=== PATIENT | female | born 1960 | race American Indian/Alaskan Native ===

== ENCOUNTER 2016-12-14 08:08 | Inpatient (IN) | payer MEDICAID, OTHER ==
[2016-12-14 08:17] VITALS: BMI 24.6
[2016-12-14] MEDS ORDERED: Sodium Chloride 0.9% 1,000 ML IV ONE (08:33)
--- NOTE | 2016-12-14 08:44 | C.PDOC ---
History Of Present Illness 56 y/o female pmhx HLD presents to the ED with complains of abdominal pain which onset after eating chicken last night. Pt reports associated nausea and 1 episode nonbloody nonbilious vomit. Denies fever, diarrhea, chest pain or any other complaints. Time Seen by Provider: 12/14/16 08:24 Chief Complaint (Nursing): Abdominal Pain History Per: Patient History/Exam Limitations: no limitations Onset/Duration Of Symptoms: Hrs Current Symptoms Are (Timing): Still Present Context: Food Severity: Moderate Location Of Pain/Discomfort: Diffuse Radiation Of Pain To:: None Quality Of Discomfort: "Pain" Associated Symptoms: Nausea, Vomiting. denies: Fever, Diarrhea, Chest Pain Exacerbating Factors: Food Alleviating Factors: None Recent travel outside of the [place]: No Past Medical History Reviewed: Historical Data, Nursing Documentation, Vital Signs Vital Signs: Last Vital Signs Temp 98.3 F 12/14/16 08:17 Pulse 60 12/14/16 10:36 Resp 18 12/14/16 08:17 BP 165/88 H 12/14/16 10:36 Pulse Ox 100 12/14/16 10:50 - Medical History PMH: Hypercholesterolemia Family History: States: Unknown Family Hx - Social History Hx Alcohol Use: No Hx Substance Use: No - Immunization History Hx Tetanus Toxoid Vaccination: No Hx Influenza Vaccination: No Hx Pneumococcal Vaccination: No Review Of Systems Except As Marked, All Systems Reviewed And Found Negative. Constitutional: Negative for: Fever Cardiovascular: Negative for: Chest Pain Gastrointestinal: Positive for: Nausea, Vomiting, Abdominal Pain. Negative for : Diarrhea Physical Exam - Physical Exam Appears: Non-toxic, No Acute Distress Skin: Warm, Dry, No Rash Head: Atraumatic, Normacephalic Oral Mucosa: Moist Neck: Normal, Normal ROM, Supple Chest: Symmetrical Cardiovascular: Rhythm Regular, No Murmur Respiratory: Normal Breath Sounds, No Rales, No Rhonchi, No Wheezing Gastrointestinal/Abdominal: Soft, Tenderness (RUQ), No Guarding, No Rebound Extremity: Bilateral: Atraumatic Neurological/Psych: Oriented x3, Normal Speech ED Course And Treatment - Laboratory Results Result Diagrams: 12/14/16 09:13 12/14/16 09:13 ECG: Interpreted By Me, Viewed By Me ECG Rhythm: Sinus Bradycardia Interpretation Of ECG: No ST/T wave changes Rate From EC (BPM) O2 Sat by Pulse Oximetry: 100 (room air) Pulse Ox Interpretation: Normal - CT Scan/US US abdomen Other Rad Studies (CT/US): Read By Radiologist, Radiology Report Reviewed CT/US Interpretation: Accession No. : [id number]. Patient Name / ID : RAMAKRISHNA ALCANTARA / [id number]. Exam Date : 12/14/2016 09:19:12 ( Approved ). Study Comment : Sex / Age : F / 56Y. Creator : Khalif Pedro MD. Dictator : Khalif Pedro MD. Insert Operator : Acute Specialist : Khalif Pedro MD. Approver2 : Report Date : 12/14/2016 10:26:18. My Comment : . Right upper quadrant abdominal ultrasound. History: Abdominal pain. Comparison: None available. Technique: Real-time sonography was performed through the right upper quadrant of the abdomen. Findings: Liver: 16.5 centimeters in length. Normal echogenicity. Gallbladder: Cholelithiasis. Calculi measure up to 2 centimeters. Gallbladder wall thickening up to 4 millimeters. Some fluid noted at the level of the gallbladder wall. Negative sonographic Flores's sign. Prominent common bile duct measuring 7 millimeters. Visualized portions of the pancreas are preserved. Pancreatic tail not well visualized. Spleen measures 7.6 centimeters in length, within normal limits. Visualized aorta and IVC are preserved. Right kidney: 9.9 x 3.7 x 4.1 centimeters. Increased echogenicity suggestive for medical renal disease. Lower pole hypoechoic cyst measuring 2.1 x 2.4 x 2.0 centimeters. No calculi or hydronephrosis. Left kidney: 9.8 x 4.7 x 5.5 centimeters. Increased echogenicity of the renal cortex suggestive for medical renal disease. No calculi or hydronephrosis. Impression: 1. Cholelithiasis with gallbladder wall thickening measuring up to 4 millimeters and fluid adjacent at the gallbladder wall. Prominent calculus noted lodged at the gallbladder neck. These findings may represent an acute cholecystitis. Correlation with nuclear medicine study and or clinical correlation would be helpful. 2. Prominent common bile duct measuring up to 7.3 millimeters. 3. 2.1 centimeter right renal cyst. 4. Increased echogenicity of the bilateral renal cortices suggestive for medical renal disease. Medical Decision Making Medical Decision Making: Plan: * labs * US abdomen * UA * IV fluids * morphine, zofran Discussed case with Dr Oneill, accepted patient for admission to her service. Discussed case with surgical assistant certified as well. Disposition - Disposition Disposition: HOSPITALIZED Disposition Time: 10:40 Condition: STABLE - Clinical Impression Clinical Impression: Cholecystitis - Scribe Statement The provider has reviewed the documentation as recorded by the Baironibe Calderon [place] Provider Attestation: All medical record entries made by the Baironibe were at my direction and personally dictated by me. I have reviewed the chart and agree that the record accurately reflects my personal performance of the history, physical exam, medical decision making, and the department course for this patient. I have also personally directed, reviewed, and agree with the discharge instructions and disposition. Decision To Admit - Pt Status Changed To: Hospital Disposition Of: Inpatient - Admit Certification Admit to Inpatient:: After my assessment, the patient will require hospitalization for at least two midnights. This is because of the severity of symptoms shown, intensity of services needed, and/or the medical risk in this patient being treated as an outpatient. - InPatient: Physician Admission Certification:: pt with acute kem, will need surgical eval , possible or - . Bed Request Type: Regular Admitting Physician: Amberly Oneill Patient Diagnosis: Cholecystitis
[2016-12-14] MEDS ORDERED: Sodium Chloride 0.9% 1,000 ML ONE ×2 (08:52→13:56)
[2016-12-14] MEDS ORDERED: Morphine 4 MG/ML VIAL ONE (08:52)
[2016-12-14 09:22] LABS: BASO % 0.5 % (0.0-2.0); EOS % 0.1 % (0.0-4.0); LYMPH # 0.9 K/uL (1.0-4.3); LYMPH % 16.9 % (20.0-40.0); MEAN CELL VOLUME 86.6 fL (81.0-99.0); MEAN CORPUSCULAR HEMOGLOBIN 28.5 pg (27.0-31.0); MEAN CORPUSCULAR HGB CONC 32.9 g/dL (33.0-37.0); MEAN PLATELET VOLUME 11.5 fL (7.2-11.7); MONO # 0.2 K/uL (0.0-0.8); MONO % 4.2 % (0.0-10.0); RED CELL DISTRIBUTION WIDTH 14.3 % (11.5-14.5); WHITE BLOOD COUNT 5.6 K/uL (4.8-10.8)
[2016-12-14 09:31] LABS: CHLORIDE 98 mmol/L (98-107); POTASSIUM 3.7 mmol/L (3.6-5.2); SODIUM 136 mmol/L (132-148)
[2016-12-14 09:33] LABS: BILIRUBIN,TOTAL 1.1 mg/dL (0.2-1.3); GFR AFRICAN-AMERICAN > 60
[2016-12-14 09:34] LABS: ALB/GLOB RATIO 1.2 (1.0-2.1); ALKALINE PHOSPHATASE 106 U/L (38-126); ALT/SGPT 21 U/L (9-52); AST/SGOT 25 U/L (14-36); BLOOD UREA NITROGEN 15 mg/dL (7-17); CALCIUM 9.2 mg/dl (8.6-10.4); CARBON DIOXIDE 25 mmol/L (22-30); GLUCOSE,RANDOM 115 mg/dL (65-105); TOTAL PROTEIN 8.2 g/dL (6.3-8.3)
[2016-12-14 09:44] LABS: INR 0.9
--- NOTE | 2016-12-14 10:28 | US ---
Right upper quadrant abdominal ultrasound History: Abdominal pain. Comparison: None available. Technique: Real-time sonography was performed through the right upper quadrant of the abdomen. Findings: Liver: 16.5 centimeters in length. Normal echogenicity. Gallbladder: Cholelithiasis. Calculi measure up to 2 centimeters. Gallbladder wall thickening up to 4 millimeters. Some fluid noted at the level of the gallbladder wall. Negative sonographic Flores's sign. Prominent common bile duct measuring 7 millimeters. Visualized portions of the pancreas are preserved. Pancreatic tail not well visualized. Spleen measures 7.6 centimeters in length, within normal limits. Visualized aorta and IVC are preserved. Right kidney: 9.9 x 3.7 x 4.1 centimeters. Increased echogenicity suggestive for medical renal disease. Lower pole hypoechoic cyst measuring 2.1 x 2.4 x 2.0 centimeters. No calculi or hydronephrosis. Left kidney: 9.8 x 4.7 x 5.5 centimeters. Increased echogenicity of the renal cortex suggestive for medical renal disease. No calculi or hydronephrosis. Impression: 1. Cholelithiasis with gallbladder wall thickening measuring up to 4 millimeters and fluid adjacent at the gallbladder wall. Prominent calculus noted lodged at the gallbladder neck. These findings may represent an acute cholecystitis. Correlation with nuclear medicine study and or clinical correlation would be helpful. 2. Prominent common bile duct measuring up to 7.3 millimeters. 3. 2.1 centimeter right renal cyst. 4. Increased echogenicity of the bilateral renal cortices suggestive for medical renal disease.
[2016-12-14] MEDS ORDERED: Piperacillin/Tazobact 3.375 GM in Sodium Chloride 100 ML IVPB STA (10:29)
[2016-12-14 10:59] LABS: RBC URINE 1 /hpf (0-3); URINE BILIRUBIN NEGATIVE (NEGATIVE); URINE BLOOD NEGATIVE (NEGATIVE); URINE COLOR Straw (YELLOW); URINE GLUCOSE (UA) NORMAL (Normal); URINE KETONE NEGATIVE (NEGATIVE); URINE LEUKOCYTE ESTERASE NEG Leu/uL (Negative); URINE PROTEIN NEGATIVE (NEGATIVE); URINE UROBILINOGEN NORMAL mg/dL (0.2-1.0); WBC URINE < 1 /hpf (0-5)
--- NOTE | 2016-12-14 11:26 | CP.PCM.CON ---
<Olu CHANGMeri - Last Filed: 12/14/16 11:51> History of Present Illness - History of Present Illness History of Present Illness: General Surgery Consult for Dr. Ralph: Patient is a 56 year old female with past medical history of elevated cholesterol who presents to the ED with complaint of right upper quadrant abdominal pain that began after eating dinner last night. Patient states she ate chicken and cabbage and began to feel a "knot" in her side that was persistent. Patient states she was unable to sleep due to the discomfort. She reports nausea and one episode of emesis early this morning. Patient states she has never had pain like this before. Patient denies trying to take any medication to alleviate the pain prior to arrival in the ED. Patient describes the abdominal discomfort as a dull aching pain. Patient reports last BM early this morning with reporting analyst than normal color- light sánchez. Patient reports this occurring once in a while in recent past. Right upper quadrant ultrasound shows gallbaldder wall thickening of 4mm, prominent CBD, prominent calculus in gallbladderneck. Surgery consulted for cholecystitis. PMD: none PMH: elevated cholesterol, not on medication PSH: section x2, unilateral salpingo-oophrectomy for ectopic Fam Hx: HTN, DM, father colon cancer Social hx: denies alcohol, drugs, tobacco Allergies: denies Review of Systems - Constitutional Constitutional: absent: Chills, Fever - EENT Eyes: absent: Change in Vision - Cardiovascular Cardiovascular: absent: Chest Pain, Dyspnea - Respiratory Respiratory: absent: Cough - Gastrointestinal Gastrointestinal: Abdominal Pain, Nausea, Vomiting. absent: Diarrhea, Hematemesis, Hematochezia Additional comments: light sánchez colored stool - Genitourinary Genitourinary: absent: Dysuria - Musculoskeletal Musculoskeletal: absent: Back Pain - Neurological Neurological: absent: Dizziness Past Patient History - Past Social History Smoking Status: Never Smoked - CARDIAC Hx Hypercholesterolemia: Yes - PSYCHIATRIC Hx Substance Use: No - SURGICAL HISTORY Hx Surgeries: Yes Hx Section: Yes (X2) - ANESTHESIA Hx Anesthesia: Yes Hx Anesthesia Reactions: No Meds Allergies/Adverse Reactions: Allergies Allergy/AdvReac Type Severity Reaction Status Date / Time No Known Allergies Allergy Verified 12/14/16 08:26 Physical Exam - Constitutional Appears: Non-toxic, No Acute Distress - Head Exam Head Exam: ATRAUMATIC, NORMOCEPHALIC - Eye Exam Eye Exam: EOMI - ENT Exam ENT Exam: Mucous Membranes Moist - Respiratory Exam Respiratory Exam: Clear to Auscultation Bilateral, NORMAL BREATHING PATTERN - Cardiovascular Exam Cardiovascular Exam: +S1, +S2 - GI/Abdominal Exam GI & Abdominal Exam: Normal Bowel Sounds, Soft, Tenderness (right upper quadrant , negative Flores's sign). absent: Distended, Firm, Guarding - Extremities Exam Extremities exam: Positive for: normal inspection. Negative for: pedal edema - Neurological Exam Neurological exam: Alert, Oriented x3 - Psychiatric Exam Psychiatric exam: Normal Affect, Normal Mood - Skin Skin Exam: Dry, Warm Results - Vital Signs Recent Vital Signs: Last Vital Signs Temp 98.3 F 12/14/16 08: Pulse 60 12/14/16 10:36 Resp 18 12/14/16 08:17 BP 165/88 H 12/14/16 10:36 Pulse Ox 100 12/14/16 10:52 - Labs Result Diagrams: 12/14/16 09:13 12/14/16 09:13 Labs: Laboratory Results - last 24 hr 12/14/16 12/14/16 12/14/16 09:13 09:13 09:13 WBC 5.6 RBC 4.16 Hgb 11.9 Hct 36.0 MCV 86.6 MCH 28.5 MCHC 32.9 L RDW 14.3 Plt Count 163 MPV 11.5 Neut % (Auto) 78.3 H Lymph % (Auto) 16.9 L [place] % (Auto) 4.2 Eos % (Auto) 0.1 Baso % (Auto) 0.5 Neut # 4.4 Lymph # 0.9 L [place] # 0.2 Eos # 0.0 Baso # 0.0 PT 10.4 INR 0.9 APTT 33 Sodium 136 Potassium 3.7 Chloride 98 Carbon Dioxide 25 Anion Gap 17 BUN 15 Creatinine 0.7 Est GFR ( Amer) > 60 Est GFR (Non-Af Amer) > 60 Random Glucose 115 H Calcium 9.2 Total Bilirubin 1.1 AST 25 ALT 21 Alkaline Phosphatase 106 Total Protein 8.2 Albumin 4.4 Globulin 3.8 Albumin/Globulin Ratio 1.2 Lipase 37 Urine Color Urine Clarity Urine pH Ur Specific [place] Urine Protein Urine Glucose (UA) Urine Ketones Urine Blood Urine Nitrate Urine Bilirubin Urine Urobilinogen Ur Leukocyte Esterase Urine WBC (Auto) Urine RBC (Auto) Ur Squamous Epith Cells Urine HCG, Qual 12/14/16 10:44 WBC RBC Hgb Hct MCV MCH MCHC RDW Plt Count MPV Neut % (Auto) Lymph % (Auto) [place] % (Auto) Eos % (Auto) Baso % (Auto) Neut # Lymph # [place] # Eos # Baso # PT INR APTT Sodium Potassium Chloride Carbon Dioxide Anion Gap BUN Creatinine Est GFR ( Amer) Est GFR (Non-Af Amer) Random Glucose Calcium Total Bilirubin AST ALT Alkaline Phosphatase Total Protein Albumin Globulin Albumin/Globulin Ratio Lipase Urine Color Straw Urine Clarity Clear Urine pH 8.0 Ur Specific [place] 1.012 Urine Protein Negative Urine Glucose (UA) Normal Urine Ketones Negative Urine Blood Negative Urine Nitrate Negative Urine Bilirubin Negative Urine Urobilinogen Normal Ur Leukocyte Esterase Neg Urine WBC (Auto) < 1 Urine RBC (Auto) 1 Ur Squamous Epith Cells 1 Urine HCG, Qual Negative Assessment & Plan - Assessment and Plan (Free Text) Assessment: 56 year old female with PMHx elevated cholesterol with RUQ pain and ultrasound findings suggestive of acute cholecystitis - US: gallbladder calculi up to 2cm. gallbaldder wall 4mm. s ome fluid at gallbladder wall. Negative sonographic flores's sign. Prominent CBD up to 7mm. Prominent calculus at gallbladder neck. May represent acute cholecystitis. - continue zofran, morphine for pain - patient will need to be medically cleared prior to surgery - plan for OR Wednesday - D/W Dr. Ralph <Bobby Ralph - Last Filed: 12/16/16 22:03> Meds - Medications Medications: Current Medications Clonidine HCl (Catapres Tts1 0.1 Mg/24 Hr) 1 patch TD Q7D@1000 [facility] Hydromorphone HCl (Dilaudid) 0.5 mg IVP Q4H PRN PRN Reason: Pain, moderate (4-7) Metronidazole (Flagyl) 500 mg in 100 mls @ 100 mls/hr IVPB Q8 [facility] Last Admin: 12/16/16 14:45 Dose: Not Given Ceftriaxone Sodium 1 gm/ (Sodium Chloride) 100 mls @ 100 mls/hr IVPB DAILY [facility] Last Admin: 12/16/16 09:49 Dose: 100 mls/hr Lactated Ringer's (Lactated Ringer's) 1,000 mls @ 100 mls/hr IV .Q10H [facility] Nifedipine (Procardia Xl) 30 mg PO DAILY [facility] Last Admin: 12/16/16 09:48 Dose: 30 mg Ondansetron HCl (Zofran Inj) 4 mg IVP Q6H PRN PRN Reason: Nausea/Vomiting Last Admin: 12/14/16 12:47 Dose: 4 mg Pantoprazole Sodium (Protonix Inj) 40 mg IVP DAILY [facility] Last Admin: 12/16/16 09:48 Dose: 40 mg Results - Vital Signs Recent Vital Signs: Last Vital Signs Temp 98.9 F 12/16/16 20:47 Pulse 88 12/16/16 20:49 Resp 20 12/16/16 20:47 BP 137/76 12/16/16 20:47 Pulse Ox 99 12/16/16 20:47 - Labs Result Diagrams: 12/15/16 07:10 12/16/16 10:15 Labs: Laboratory Results - last 24 hr 12/15/16 12/16/16 12/16/16 14:17 09:25 10:15 Sodium 135 Potassium 3.1 L Chloride 103 Carbon Dioxide 22 Anion Gap 14 BUN 18 H Creatinine 1.0 Est GFR ( Amer) > 60 Est GFR (Non-Af Amer) 58 Random Glucose 75 Calcium 9.1 Total Bilirubin 2.0 H AST 20 ALT 21 Alkaline Phosphatase 87 Total Protein 7.0 Albumin 3.7 Globulin 3.3 Albumin/Globulin Ratio 1.1 Ur Random Creatinine 55.8 U Random Total Protein 12.0 Urine HCG, Qual 12/16/16 12:01 Sodium Potassium Chloride Carbon Dioxide Anion Gap BUN Creatinine Est GFR ( Amer) Est GFR (Non-Af Amer) Random Glucose Calcium Total Bilirubin AST ALT Alkaline Phosphatase Total Protein Albumin Globulin Albumin/Globulin Ratio Ur Random Creatinine U Random Total Protein Urine HCG, Qual Negative Attending/Attestation - Attestation I have personally seen and examined this patient.: Yes I have fully participated in the care of the patient.: Yes I have reviewed all pertinent clinical information: Yes Notes (Text): 12/16/16 22:01 Pt was seen and examined at bedside on 12/14/16 Agree with above note and assessment. Pt with acute Cholecystitis with Abnormal LFTs and Dilated CBD Get MRCP Repeat LFTs Plan d.w pt in detail Medical clearance for possible Operation
[2016-12-14] MEDS ORDERED: Piperacillin/Tazobact 3.375 gm 100 ML IVPB ONE (12:41)
[2016-12-14] MEDS ORDERED: HYDROmorphone 1 mg/ml ISec IVP PRN (13:38)
--- NOTE | 2016-12-14 13:45 | RAD ---
HISTORY: preop COMPARISON: No prior. FINDINGS: LUNGS: Mild venous congestion. PLEURA: No significant pleural effusion identified, no pneumothorax apparent. CARDIOVASCULAR: Normal. OSSEOUS STRUCTURES: No significant abnormalities. VISUALIZED UPPER ABDOMEN: Normal. OTHER FINDINGS: None. IMPRESSION: Mild venous congestion.
[2016-12-14] MEDS ORDERED: HYDROmorphone 1 mg/ml ISec ONE (13:56)
[2016-12-14] MEDS: Sodium Chloride 0.9% 1,000 ML IV SCH (14:11)
[2016-12-14] MEDS: HYDROmorphone 0.5 mg/0.5 ml ISec IVP PRN (18:12)
--- NOTE | 2016-12-14 18:56 | CP.PCM.CON ---
History of Present Illness - History of Present Illness History of Present Illness: Middle aged female with history of hyperlipidemia who came in for abdominal pain. No chest pain or shortness of breath. Review of Systems - Constitutional Constitutional: As Per HPI - EENT Nose/Mouth/Throat: As Per HPI Past Patient History - Past Medical History & Family History Past Medical History?: Yes - Past Social History Smoking Status: Never Smoked - CARDIAC Hx Cardiac Disorders: Yes Hx Hypercholesterolemia: Yes - PULMONARY Hx Respiratory Disorders: No - NEUROLOGICAL Hx Neurological Disorder: No - HEENT Hx HEENT Problems: No - RENAL Hx Chronic Kidney Disease: No - ENDOCRINE/METABOLIC Hx Endocrine Disorders: No - HEMATOLOGICAL/ONCOLOGICAL Hx Blood Disorders: No - INTEGUMENTARY Hx Dermatological Problems: No - MUSCULOSKELETAL/RHEUMATOLOGICAL Hx Musculoskeletal Disorders: No Hx Falls: No - GASTROINTESTINAL Hx Gastrointestinal Disorders: No - GENITOURINARY/GYNECOLOGICAL Hx Genitourinary Disorders: No - PSYCHIATRIC Hx Psychophysiologic Disorder: No Hx Substance Use: No - SURGICAL HISTORY Hx Surgeries: Yes Hx Section: Yes (X2) - ANESTHESIA Hx Anesthesia: Yes Hx Anesthesia Reactions: No Hx Malignant Hyperthermia: No Has any member of the family had a problem w/ anesthesia?: No Meds Allergies/Adverse Reactions: Allergies Allergy/AdvReac Type Severity Reaction Status Date / Time No Known Allergies Allergy Verified 12/14/16 08:26 - Medications Medications: Current Medications Clonidine HCl (Catapres-Tts3 0.3 Mg/24 Hr) 1 patch TD Q7D@1000 [facility] Last Admin: 12/14/16 18:14 Dose: 1 patch Hydromorphone HCl (Dilaudid) 0.25 mg IVP Q4H PRN PRN Reason: Pain, moderate (4-7) Last Admin: 12/14/16 18:12 Dose: 0.25 mg Sodium Chloride (Sodium Chloride 0.9%) 1,000 mls @ 80 mls/hr IV .[id number] [facility] Last Admin: 12/14/16 14:11 Dose: 80 mls/hr Metronidazole (Flagyl) 500 mg in 100 mls @ 100 mls/hr IVPB Q8 [facility] Ceftriaxone Sodium 1 gm/ (Sodium Chloride) 100 mls @ 100 mls/hr IVPB DAILY [facility] Ondansetron HCl (Zofran Inj) 4 mg IVP Q6H PRN PRN Reason: Nausea/Vomiting Last Admin: 12/14/16 12:47 Dose: 4 mg Pantoprazole Sodium (Protonix Inj) 40 mg IVP DAILY [facility] Physical Exam - Head Exam Head Exam: NORMOCEPHALIC - Neck Exam Neck exam: Positive for: Normal Inspection - Respiratory Exam Respiratory Exam: NORMAL BREATHING PATTERN - Cardiovascular Exam Cardiovascular Exam: REGULAR RHYTHM - GI/Abdominal Exam GI & Abdominal Exam: Soft - Extremities Exam Extremities exam: Positive for: normal inspection - Neurological Exam Neurological exam: Oriented x3 Results - Vital Signs Recent Vital Signs: Last Vital Signs Temp 98.6 F 12/14/16 16:09 Pulse 64 12/14/16 16:09 Resp 16 12/14/16 16:09 BP 174/77 H 12/14/16 16:09 Pulse Ox 100 12/14/16 16:09 - Labs Result Diagrams: 12/14/16 09:13 12/14/16 09:13 Labs: Laboratory Results - last 24 hr 12/14/16 10:44 Urine Color Straw Urine Clarity Clear Urine pH 8.0 Ur Specific [place] 1.012 Urine Protein Negative Urine Glucose (UA) Normal Urine Ketones Negative Urine Blood Negative Urine Nitrate Negative Urine Bilirubin Negative Urine Urobilinogen Normal Ur Leukocyte Esterase Neg Urine WBC (Auto) < 1 Urine RBC (Auto) 1 Ur Squamous Epith Cells 1 Urine HCG, Qual Negative Assessment & Plan (1) Cholecystitis Assessment and Plan: Most likely her symptoms are secondary to old gall bladder issues. At present there appears to be no cardiac issues or any risk factor suggestive of CAD. Given the nature of the disease if patient needs to have a procedure may proceed with procedure with acceptable risk. Status: Acute
[2016-12-14] MEDS: metroNIDAZOLE IV 500 mg/100 ml 500 MG/100 ML BAG IVPB SCH (21:25)
--- NOTE | 2016-12-14 21:37 | CP.PCM.CON ---
History of Present Illness - History of Present Illness History of Present Illness: 56 yo F w/ pmh of hyperlipidemia, presented with sudden onset of RUQ abdominal pain that started last night and has persisted unabated till given pain meds here; found to be markedly hypertensive with BP 202/109 on presentation; nephrology being consulted for hypertensive urgency in the setting of acute cholecystitis; Patient reports not regularly following with any physician although she did see a physician last year but denies ever being told that she is hypertensive; patient denies any shortness of breath, leg swelling, palpitations or chest pain ; she does report an occasional feeling of heaviness in her head and has been having increased frequency of headaches, about 3 times per week lately; reports occasional attacks of anxiety that resolve spontaneously; Patient denies using any illicit drugs; denies drinking alcohol or smoking cigarettes; Review of Systems - Constitutional Constitutional: Chills. absent: Anorexia - EENT Eyes: absent: Blurred Vision, Change in Vision Ears: absent: Ear Pain, Dizziness Nose/Mouth/Throat: absent: Nasal Discharge, Sinus Pain, Sore Throat - Cardiovascular Cardiovascular: absent: Chest Pain, Dyspnea, Palpitations - Respiratory Respiratory: absent: Cough, Dyspnea - Gastrointestinal Gastrointestinal: As Per HPI - Genitourinary Genitourinary: Nocturia. absent: Dysuria Additional comments: Reports urinating ~5 times at night; sometimes feeling of incomplete evacuation; - Menstruation Menstruation: Menopausal - Musculoskeletal Musculoskeletal: absent: Arthralgias, Numbness - Integumentary Integumentary: absent: Pruritus, Rash - Neurological Neurological: absent: Sensory Deficit, Vertigo - Psychiatric Psychiatric: Anxiety - Hematologic/Lymphatic Hematologic: absent: Easy Bleeding, Easy Bruising Past Patient History - Past Medical History & Family History Past Medical History?: Yes Pertinent Family History: Mother with htn; father with htn and colon Ca - Past Social History Smoking Status: Never Smoked - CARDIAC Hx Cardiac Disorders: Yes Hx Hypercholesterolemia: Yes - PULMONARY Hx Respiratory Disorders: No - NEUROLOGICAL Hx Neurological Disorder: No - HEENT Hx HEENT Problems: No - RENAL Hx Chronic Kidney Disease: No - ENDOCRINE/METABOLIC Hx Endocrine Disorders: No - HEMATOLOGICAL/ONCOLOGICAL Hx Blood Disorders: No - INTEGUMENTARY Hx Dermatological Problems: No - MUSCULOSKELETAL/RHEUMATOLOGICAL Hx Musculoskeletal Disorders: No Hx Falls: No - GASTROINTESTINAL Hx Gastrointestinal Disorders: No - GENITOURINARY/GYNECOLOGICAL Hx Genitourinary Disorders: No - PSYCHIATRIC Hx Psychophysiologic Disorder: No Hx Substance Use: No - SURGICAL HISTORY Hx Surgeries: Yes Hx Section: Yes (X2) - ANESTHESIA Hx Anesthesia: Yes Hx Anesthesia Reactions: No Hx Malignant Hyperthermia: No Has any member of the family had a problem w/ anesthesia?: No Meds Allergies/Adverse Reactions: Allergies Allergy/AdvReac Type Severity Reaction Status Date / Time No Known Allergies Allergy Verified 12/14/16 08:26 - Medications Medications: Current Medications Clonidine HCl (Catapres Tts1 0.1 Mg/24 Hr) 1 patch TD Q7D@1000 [facility] Hydromorphone HCl (Dilaudid) 0.25 mg IVP Q4H PRN PRN Reason: Pain, moderate (4-7) Last Admin: 12/14/16 18:12 Dose: 0.25 mg Sodium Chloride (Sodium Chloride 0.9%) 1,000 mls @ 80 mls/hr IV .[id number] [facility] Last Admin: 12/14/16 14:11 Dose: 80 mls/hr Metronidazole (Flagyl) 500 mg in 100 mls @ 100 mls/hr IVPB Q8 [facility] Last Admin: 12/14/16 21:25 Dose: 100 mls/hr Ceftriaxone Sodium 1 gm/ (Sodium Chloride) 100 mls @ 100 mls/hr IVPB DAILY [facility] Nifedipine (Procardia Xl) 30 mg PO DAILY [facility] Ondansetron HCl (Zofran Inj) 4 mg IVP Q6H PRN PRN Reason: Nausea/Vomiting Last Admin: 12/14/16 12:47 Dose: 4 mg Pantoprazole Sodium (Protonix Inj) 40 mg IVP DAILY [facility] Physical Exam - Constitutional Appears: Well, Non-toxic, No Acute Distress - Head Exam Head Exam: NORMAL INSPECTION - Eye Exam Eye Exam: Normal appearance. absent: Scleral icterus - ENT Exam ENT Exam: Mucous Membranes Moist - Neck Exam Neck exam: Positive for: Normal Inspection. Negative for: Lymphadenopathy, Thyromegaly - Respiratory Exam Respiratory Exam: Clear to Auscultation Bilateral, NORMAL BREATHING PATTERN. absent: Rhonchi, Wheezes, Respiratory Distress - Cardiovascular Exam Cardiovascular Exam: REGULAR RHYTHM, +S1, +S2 - GI/Abdominal Exam GI & Abdominal Exam: Soft. absent: Distended Additional comments: RUQ severe tenderness to palpation; - Exam Exam: absent: Bladder Distension - Extremities Exam Extremities exam: Positive for: normal capillary refill, pedal pulses present Additional comments: No leg edema; - Neurological Exam Neurological exam: Alert, Oriented x3 - Psychiatric Exam Psychiatric exam: Normal Affect, Normal Mood - Skin Skin Exam: Normal Color, Warm Results - Vital Signs Recent Vital Signs: Last Vital Signs Temp 98.4 F 12/14/16 17:00 Pulse 57 L 12/14/16 17:00 Resp 20 12/14/16 17:00 BP 180/80 H 12/14/16 17:00 Pulse Ox 100 12/14/16 17:00 - Labs Result Diagrams: 12/14/16 09:13 12/14/16 09:13 Labs: Laboratory Results - last 24 hr 12/14/16 10:44 Urine Color Straw Urine Clarity Clear Urine pH 8.0 Ur Specific [place] 1.012 Urine Protein Negative Urine Glucose (UA) Normal Urine Ketones Negative Urine Blood Negative Urine Nitrate Negative Urine Bilirubin Negative Urine Urobilinogen Normal Ur Leukocyte Esterase Neg Urine WBC (Auto) < 1 Urine RBC (Auto) 1 Ur Squamous Epith Cells 1 Urine HCG, Qual Negative - Imaging and Cardiology Chest x-ray Status: Image reviewed by me Additional comment: Mild pulmonary vascular congestion; Assessment & Plan (1) Hypertensive urgency Assessment and Plan: Uncontrolled htn in the setting of lack of routine medical f/u, likely exacerbated by acute pain; euvolemic on exam although CXR showing some vascular congestion; goal is to reduce BP by 25% over first 24 hours to SBP 160; started on clonidine patch today but will likely take a few days for full effect and would need to be tapered off if switching to another med; -if patient can tolerate PO meds (ok per surgery), will start Nifedipine XL 30 mg daily -decrease clonidine patch to 0.1 mg -check urine drug screen -needs close outpatient f/u Status: Acute (2) Echogenic kidneys on renal ultrasound Assessment and Plan: Somewhat subjective finding; with normal eGFR per serum creatinine and no proteinuria, has good overall prognosis for renal function as long as co- morbidities are controlled; -check random urine protein and creatinine Status: Acute (3) Urinary frequency Assessment and Plan: No glycosuria per UA although patient is currently NPO; -check HgbA1C -bladder US w/ post-void residual measurement Status: Acute (4) Cholecystitis Assessment and Plan: With suggestive signs/symptoms; started on empiric antibiotics; -Continue IVF w/ NS at 80 cc/hr as patient is able to lie flat with no respiratory distress despite CXR findings -Avoid NSAIDS for pain relief as this will exacerbate htn Status: Acute
[2016-12-14] MEDS: NIFEdipine 30 mg ER Tab PO SCH (22:03)
[2016-12-15] MEDS: Sodium Chloride 0.9% 1,000 ML IV SCH ×2 (02:15→14:56)
[2016-12-15] MEDS: metroNIDAZOLE IV 500 mg/100 ml 500 MG/100 ML BAG IVPB SCH ×3 (06:07→21:56)
--- NOTE | 2016-12-15 07:07 | HP ---
CHIEF COMPLAINT: Right upper quadrant abdominal pain, nausea, vomiting. HISTORY OF PRESENT ILLNESS: The patient is a 56-year-old female with past medical history nonsignificant came with abdominal pain which started after eating chicken last night. The patient reports associated with nausea and vomiting, 1 episode of nonbloody, nonbilious vomiting. Denies fever, diarrhea. No chest pain, no shortness of breath. Abdominal pain is still present. It is diffuse. No more nausea, vomiting. PAST MEDICAL HISTORY: Nonsignificant except hypercholesterolemia. FAMILY HISTORY: Father and mother noncontributory. HABITS: No smoking , no drugs, no ethanol. REVIEW OF SYSTEMS: The patient seen and examined on the bedside. and daughter are standing on the bedside also. Still having right upper quadrant abdominal pain. Even it is easing up. No more episode of vomiting or nauseous. No fever, no chills. No hematuria of hematochezia. PHYSICAL EXAMINATION: VITAL SIGNS: Temperature 98.3, pulse 60, respiratory rate 18, blood pressure 155/88. HEENT: Head normocephalic, atraumatic. Eyes: PERRLA. Extraocular muscles intact. Conjunctivae clear. Nose patent. Mucous membranes moist. NECK: Supple. No carotid bruit, JVD or thyromegaly. CHEST: Bilaterally symmetrical. HEART: S1, S2 positive. LUNGS: Clear to auscultation. ABDOMEN: Soft, tender in the right upper quadrant. Bowel sounds positive. EXTREMITIES: No edema, no cyanosis. NEUROLOGIC: The patient awake, alert, moving all 4 extremities. No focal deficit. LABORATORY DATA: White blood cells 5.6, hemoglobin 11.9, hematocrit 36.2, platelets 163. Sodium 136, potassium 3.7, BUN 15, creatinine 0.7, glucose 115. ASSESSMENT AND PLAN: The patient is a 56-year-old lady with cholelithiasis, cholecystitis, right upper quadrant abdominal pain, anemia, hyperglycemia. I noted blood pressure was high. The patient is n.p.o. I put TTS patch 3 q. 72 hours, put consult of Dr. Emmanuel Vila for better control of blood pressure. Cardiology and pulmonary consults, so the patient will get clear in case we have to do emergency surgery. Surgical team is on the case. Length of time discussion done. All questions answered. History of hypercholesterolemia. Never smoke or drink. According to Dr. Jackson, the patient looks like not have any cardiac issues or any risk factors for aggressiveness of the coronary artery disease. The patient needs to proceed with procedure with acceptable risk. In other words, Dr. Jackson cleared the patient for surgery. The patient was seen by the surgical team, by Dr. Ralph's team also. The patient was started on IV antibiotics. Ultrasound findings suggesting of acute cholecystitis, gallbladder calculi up to 2 cm, gallbladder wall 4 mm, some fluid at gallbladder wall, negative sonogram Flores's sign. Prominent common bile duct, prominent calculus at gallbladder neck. Continue Zofran, morphine IV antibiotics, Flagyl, Rocephin. The patient is medically cleared. Plan is for surgery on Wednesday as per Dr. Ralph's team. Discussion done with Dr. Emmanuel Vila also for the patient's blood pressure and length of time discussion done with nursing staff and the patient's . All questions answered. Amberly Oneill MD cc: [id number] TT: 12/15/2016 07:06:48 serenity CO[place]INS
[2016-12-15 07:17] LABS: BASO % 0.3 % (0.0-2.0); EOS % 0.4 % (0.0-4.0); HEMATOCRIT 35.3 % (34.0-47.0); LYMPH # 1.5 K/uL (1.0-4.3); LYMPH % 22.7 % (20.0-40.0); MEAN CORPUSCULAR HEMOGLOBIN 28.2 pg (27.0-31.0); MEAN CORPUSCULAR HGB CONC 32.8 g/dL (33.0-37.0); MEAN PLATELET VOLUME 11.1 fL (7.2-11.7); MONO # 0.6 K/uL (0.0-0.8); MONO % 8.9 % (0.0-10.0); RED CELL DISTRIBUTION WIDTH 14.3 % (11.5-14.5); WHITE BLOOD COUNT 6.5 K/uL (4.8-10.8)
[2016-12-15 08:00] LABS: CHLORIDE 102 mmol/L (98-107); SODIUM 135 mmol/L (132-148)
[2016-12-15 08:01] LABS: POTASSIUM 3.3 mmol/L (3.6-5.2)
[2016-12-15 08:02] LABS: CARBON DIOXIDE 23 mmol/L (22-30); GFR AFRICAN-AMERICAN > 60
[2016-12-15 08:03] LABS: ALB/GLOB RATIO 1.2 (1.0-2.1); ALKALINE PHOSPHATASE 87 U/L (38-126); ALT/SGPT 18 U/L (9-52); AST/SGOT 21 U/L (14-36); BILIRUBIN,TOTAL 1.9 mg/dL (0.2-1.3); BLOOD UREA NITROGEN 9 mg/dL (7-17); CALCIUM 8.9 mg/dl (8.6-10.4); GLUCOSE,RANDOM 97 mg/dL (65-105); PHOSPHOROUS 3.2 mg/dL (2.5-4.5); TOTAL PROTEIN 7.1 g/dL (6.3-8.3)
[2016-12-15 08:04] LABS: MAGNESIUM 1.9 mg/dL (1.6-2.3)
--- NOTE | 2016-12-15 08:51 | CP.PCM.CON ---
History of Present Illness - History of Present Illness History of Present Illness: Reason for consultation: Pulmonary clearance 56-year-old female with no significant past medical history presented with right upper quadrant pain associated with vomiting started yesterday. Denies shortness of breath, denies fever or chills, denies night sweats or cough. Review of Systems - Review of Systems All systems: reviewed and no additional remarkable complaints except (Right upper quadrant pain) Past Patient History - Past Medical History & Family History Past Medical History?: Yes - Past Social History Smoking Status: Never Smoked - CARDIAC Hx Cardiac Disorders: Yes Hx Hypercholesterolemia: Yes - PULMONARY Hx Respiratory Disorders: No - NEUROLOGICAL Hx Neurological Disorder: No - HEENT Hx HEENT Problems: No - RENAL Hx Chronic Kidney Disease: No - ENDOCRINE/METABOLIC Hx Endocrine Disorders: No - HEMATOLOGICAL/ONCOLOGICAL Hx Blood Disorders: No - INTEGUMENTARY Hx Dermatological Problems: No - MUSCULOSKELETAL/RHEUMATOLOGICAL Hx Musculoskeletal Disorders: No Hx Falls: No - GASTROINTESTINAL Hx Gastrointestinal Disorders: No - GENITOURINARY/GYNECOLOGICAL Hx Genitourinary Disorders: No - PSYCHIATRIC Hx Psychophysiologic Disorder: No Hx Substance Use: No - SURGICAL HISTORY Hx Surgeries: Yes Hx Section: Yes (X2) - ANESTHESIA Hx Anesthesia: Yes Hx Anesthesia Reactions: No Hx Malignant Hyperthermia: No Has any member of the family had a problem w/ anesthesia?: No Meds Allergies/Adverse Reactions: Allergies Allergy/AdvReac Type Severity Reaction Status Date / Time No Known Allergies Allergy Verified 12/14/16 08:26 - Medications Medications: Current Medications Clonidine HCl (Catapres Tts1 0.1 Mg/24 Hr) 1 patch TD Q7D@1000 [facility] Hydromorphone HCl (Dilaudid) 0.25 mg IVP Q4H PRN PRN Reason: Pain, moderate (4-7) Last Admin: 12/14/16 18:12 Dose: 0.25 mg Sodium Chloride (Sodium Chloride 0.9%) 1,000 mls @ 80 mls/hr IV .[id number] [facility] Last Admin: 12/15/16 02:15 Dose: Not Given Metronidazole (Flagyl) 500 mg in 100 mls @ 100 mls/hr IVPB Q8 [facility] Last Admin: 12/15/16 06:07 Dose: 100 mls/hr Ceftriaxone Sodium 1 gm/ (Sodium Chloride) 100 mls @ 100 mls/hr IVPB DAILY [facility] Nifedipine (Procardia Xl) 30 mg PO DAILY [facility] Last Admin: 12/14/16 22:03 Dose: 30 mg Ondansetron HCl (Zofran Inj) 4 mg IVP Q6H PRN PRN Reason: Nausea/Vomiting Last Admin: 12/14/16 12:47 Dose: 4 mg Pantoprazole Sodium (Protonix Inj) 40 mg IVP DAILY [facility] Physical Exam - Head Exam Head Exam: ATRAUMATIC, NORMOCEPHALIC - Eye Exam Eye Exam: Normal appearance - ENT Exam ENT Exam: Mucous Membranes Moist - Neck Exam Neck exam: Positive for: Normal Inspection - Respiratory Exam Respiratory Exam: Clear to Auscultation Bilateral - Cardiovascular Exam Cardiovascular Exam: REGULAR RHYTHM - GI/Abdominal Exam GI & Abdominal Exam: Tenderness - Extremities Exam Extremities exam: Positive for: normal inspection - Neurological Exam Neurological exam: Alert, Oriented x3 Results - Vital Signs Recent Vital Signs: Last Vital Signs Temp 98.4 F 12/15/16 07:16 Pulse 81 12/15/16 07:16 Resp 20 12/15/16 07:16 BP 119/77 12/15/16 07:16 Pulse Ox 98 12/15/16 07:16 - Labs Result Diagrams: 12/15/16 07:10 12/15/16 07:10 Labs: Laboratory Results - last 24 hr 12/14/16 12/15/16 12/15/16 10:44 07:10 07:10 WBC 6.5 RBC 4.10 Hgb 11.6 Hct 35.3 MCV 86.0 MCH 28.2 MCHC 32.8 L RDW 14.3 Plt Count 159 MPV 11.1 Neut % (Auto) 67.7 Lymph % (Auto) 22.7 [place] % (Auto) 8.9 Eos % (Auto) 0.4 Baso % (Auto) 0.3 Neut # 4.4 Lymph # 1.5 [place] # 0.6 Eos # 0.0 Baso # 0.0 Sodium 135 Potassium 3.3 L Chloride 102 Carbon Dioxide 23 Anion Gap 13 BUN 9 Creatinine 0.8 Est GFR ( Amer) > 60 Est GFR (Non-Af Amer) > 60 Random Glucose 97 Calcium 8.9 Phosphorus 3.2 Magnesium 1.9 Total Bilirubin 1.9 H AST 21 ALT 18 Alkaline Phosphatase 87 Total Protein 7.1 Albumin 3.9 Globulin 3.3 Albumin/Globulin Ratio 1.2 Triglycerides 41 LDL Cholesterol Direct 208 H HDL Cholesterol 70 Urine Color Straw Urine Clarity Clear Urine pH 8.0 Ur Specific [place] 1.012 Urine Protein Negative Urine Glucose (UA) Normal Urine Ketones Negative Urine Blood Negative Urine Nitrate Negative Urine Bilirubin Negative Urine Urobilinogen Normal Ur Leukocyte Esterase Neg Urine WBC (Auto) < 1 Urine RBC (Auto) 1 Ur Squamous Epith Cells 1 Urine HCG, Qual Negative Urine Methadone Screen Ur Barbiturates Screen Ur Phencyclidine Scrn Ur Amphetamines Screen U Benzodiazepines Scrn U Oth Cocaine Metabols U Cannabinoids Screen 12/15/16 07:18 WBC RBC Hgb Hct MCV MCH MCHC RDW Plt Count MPV Neut % (Auto) Lymph % (Auto) [place] % (Auto) Eos % (Auto) Baso % (Auto) Neut # Lymph # [place] # Eos # Baso # Sodium Potassium Chloride Carbon Dioxide Anion Gap BUN Creatinine Est GFR ( Amer) Est GFR (Non-Af Amer) Random Glucose Calcium Phosphorus Magnesium Total Bilirubin AST ALT Alkaline Phosphatase Total Protein Albumin Globulin Albumin/Globulin Ratio Triglycerides LDL Cholesterol Direct HDL Cholesterol Urine Color Urine Clarity Urine pH Ur Specific [place] Urine Protein Urine Glucose (UA) Urine Ketones Urine Blood Urine Nitrate Urine Bilirubin Urine Urobilinogen Ur Leukocyte Esterase Urine WBC (Auto) Urine RBC (Auto) Ur Squamous Epith Cells Urine HCG, Qual Urine Methadone Screen Negative Ur Barbiturates Screen Negative Ur Phencyclidine Scrn Negative Ur Amphetamines Screen Negative U Benzodiazepines Scrn Negative U Oth Cocaine Metabols Negative U Cannabinoids Screen Negative Assessment & Plan (1) Cholecystitis Status: Acute Comment: Patient is low-risk for surgery from pulmonary standpoint
--- NOTE | 2016-12-15 09:17 | CP.PCM.PN ---
<Meri Raines DO - Last Filed: 12/15/16 10:53> Subjective - Date & Time of Evaluation Date of Evaluation: 12/15/16 Time of Evaluation: 09:08 - Subjective Subjective: PGY1 Progress note for Dr. Ralph Patient states she is feeling okay but stats she feels like she has a knot in her side. Patient denies nausea and vomiting. Objective - Vital Signs/Intake and Output Vital Signs (last 24 hours): Temp Pulse Resp BP Pulse Ox 98.4 F 81 20 119/77 98 12/15/16 07:16 12/15/16 07:16 12/15/16 07:16 12/15/16 07:16 12/15/16 07:16 Intake and Output: 12/15/16 12/15/16 06:59 18:59 Intake Total 1340 Balance 1340 - Medications Medications: Current Medications Clonidine HCl (Catapres Tts1 0.1 Mg/24 Hr) 1 patch TD Q7D@1000 [facility] Hydromorphone HCl (Dilaudid) 0.25 mg IVP Q4H PRN PRN Reason: Pain, moderate (4-7) Last Admin: 12/14/16 18:12 Dose: 0.25 mg Sodium Chloride (Sodium Chloride 0.9%) 1,000 mls @ 80 mls/hr IV .[id number] [facility] Last Admin: 12/15/16 02:15 Dose: Not Given Metronidazole (Flagyl) 500 mg in 100 mls @ 100 mls/hr IVPB Q8 [facility] Last Admin: 12/15/16 06:07 Dose: 100 mls/hr Ceftriaxone Sodium 1 gm/ (Sodium Chloride) 100 mls @ 100 mls/hr IVPB DAILY [facility] Nifedipine (Procardia Xl) 30 mg PO DAILY [facility] Last Admin: 12/14/16 22:03 Dose: 30 mg Ondansetron HCl (Zofran Inj) 4 mg IVP Q6H PRN PRN Reason: Nausea/Vomiting Last Admin: 12/14/16 12:47 Dose: 4 mg Pantoprazole Sodium (Protonix Inj) 40 mg IVP DAILY [facility] - Labs Labs: 12/15/16 07:10 12/15/16 07:10 PT 10.4 SECONDS (9.7-12.2) 12/14/16 09:13 INR 0.9 12/14/16 09:13 APTT 33 SECONDS (21-34) 12/14/16 09:13 - Constitutional Appears: Non-toxic, No Acute Distress - Head Exam Head Exam: ATRAUMATIC, NORMOCEPHALIC - Eye Exam Eye Exam: EOMI - GI/Abdominal Exam GI & Abdominal Exam: Soft, Tenderness (RUQ), Normal Bowel Sounds. absent: Distended, Firm - Neurological Exam Neurological Exam: Alert, Awake - Psychiatric Exam Psychiatric exam: Normal Affect - Skin Skin Exam: Warm Assessment and Plan - Assessment and Plan (Free Text) Assessment: 56 year old female with PMHx elevated cholesterol with RUQ pain and ultrasound findings indicative of acute cholecystitis - US: gallbladder calculi up to 2cm. gallbaldder wall 4mm. s ome fluid at gallbladder wall. Negative sonographic pinto's sign. Prominent CBD up to 7mm. Prominent calculus at gallbladder neck. May represent acute cholecystitis. - T. bili increased from 1.1 to 1.9, will check MRCP today - continue medical management as per primary team - patient evaluated by pulmonology, cardiology for pre-op risk assessment- patient may have surgery with acceptable risk - plan for OR tomorrow - further recs per Dr. Ralph <Bobby Ralph - Last Filed: 12/16/16 22:10> Objective - Vital Signs/Intake and Output Vital Signs (last 24 hours): Temp Pulse Resp BP Pulse Ox 98.9 F 88 20 137/76 99 12/16/16 20:47 12/16/16 20:49 12/16/16 20:47 12/16/16 20:47 12/16/16 20:47 Intake and Output: 12/16/16 12/17/16 18:59 06:59 Intake Total 100 Output Total 350 Balance -250 - Medications Medications: Current Medications Clonidine HCl (Catapres Tts1 0.1 Mg/24 Hr) 1 patch TD Q7D@1000 [facility] Hydromorphone HCl (Dilaudid) 0.5 mg IVP Q4H PRN PRN Reason: Pain, moderate (4-7) Metronidazole (Flagyl) 500 mg in 100 mls @ 100 mls/hr IVPB Q8 [facility] Last Admin: 12/16/16 22:00 Dose: 100 mls/hr Ceftriaxone Sodium 1 gm/ (Sodium Chloride) 100 mls @ 100 mls/hr IVPB DAILY [facility] Last Admin: 12/16/16 09:49 Dose: 100 mls/hr Lactated Ringer's (Lactated Ringer's) 1,000 mls @ 100 mls/hr IV .Q10H [facility] Last Admin: 12/16/16 21:59 Dose: 100 mls/hr Nifedipine (Procardia Xl) 30 mg PO DAILY [facility] Last Admin: 12/16/16 09:48 Dose: 30 mg Ondansetron HCl (Zofran Inj) 4 mg IVP Q6H PRN PRN Reason: Nausea/Vomiting Last Admin: 12/14/16 12:47 Dose: 4 mg Pantoprazole Sodium (Protonix Inj) 40 mg IVP DAILY [facility] Last Admin: 12/16/16 09:48 Dose: 40 mg - Labs Labs: 12/15/16 07:10 12/16/16 10:15 PT 10.4 SECONDS (9.7-12.2) 12/14/16 09:13 INR 0.9 12/14/16 09:13 APTT 33 SECONDS (21-34) 12/14/16 09:13 Attending/Attestation - Attestation I have personally seen and examined this patient.: Yes I have fully participated in the care of the patient.: Yes I have reviewed all pertinent clinical information, including history, physical exam and plan: Yes Notes (Text): 12/16/16 22:09 Pt was seen and examined at bedside on 12/15/16 Agree with above note and assessment. Pt with Acute Cholecystitis with cholelithiasis MRCP is negative for CBD stone Repeat LFTs in am OR for Lap Cholecystectomy tomorrow Consent Plan d.w pt in detail Risk and benefit explained in detail.
[2016-12-15 09:37] LABS: CHOLESTEROL 365 mg/dL (0-199)
--- NOTE | 2016-12-15 10:20 | CARD ---
APPROVED REPORT EKG Measurement Heart [id number] <Conclusion> Sinus bradycardia Moderate voltage criteria for LVH, may be normal variant Borderline ECG
[2016-12-15] MEDS: NIFEdipine 30 mg ER Tab PO SCH (11:09)
[2016-12-15] MEDS: HYDROmorphone 0.5 mg/0.5 ml ISec IVP PRN (11:50)
--- NOTE | 2016-12-15 15:38 | MRI ---
MRCP Indication: Cholecystitis, gallstone identified within the gallbladder neck on ultrasound. Elevated T bili. Technique: Multiplanar, multisequence MR images of the abdomen were obtained, including heavily T2 weighted MRCP images of the biliary system. Rotating maximum intensity projection images of the biliary system were generated. A total of 582 images were submitted for review. Comparison: Abdominal ultrasound performed 12/14/16 Findings: Cholelithiasis including gallstone at the gallbladder neck. Evidence of increased signal abnormality adjacent to the gallbladder suspected artifactual however pericholecystic edema/fluid cannot be excluded. The gallbladder wall does not appear thickened. Periportal edema. Visualized portions of the common bile duct appear within normal limits of caliber ; distal CBD is not adequately visualized. The pancreatic duct does not appear dilated. No filling defects are seen in the common bile duct or pancreatic duct. Right renal T2 hyperintense lesions measuring up to 2.4 cm at the right lower pole, presumed to reflect cyst however cannot be further assessed in the absence of IV contrast. The noncontrast imaged portions of the liver, adrenal glands, kidneys, spleen, and pancreas appear otherwise unremarkable. No bulky abdominal lymphadenopathy is seen. No acute osseous abnormality is detected. Impression: Cholelithiasis including gallstone at the gallbladder neck. Evidence of increased signal abnormality adjacent to the gallbladder suspected artifactual however pericholecystic edema/fluid cannot be excluded. The gallbladder wall does not appear thickened. Periportal edema. Visualized portions of the common bile duct appear within normal limits of caliber ; distal CBD is not adequately visualized. Right renal T2 hyperintense lesions measuring up to 2.4 cm at the right lower pole, presumed to reflect cyst however cannot be further assessed in the absence of IV contrast. Additional findings as above.
--- NOTE | 2016-12-15 18:47 | CP.PCM.PN ---
Subjective - Date & Time of Evaluation Date of Evaluation: 12/15/16 Time of Evaluation: 18:45 - Subjective Subjective: No chest pain or shortness of breath. Objective - Vital Signs/Intake and Output Vital Signs (last 24 hours): Temp Pulse Resp BP Pulse Ox 99 F 84 20 141/78 98 12/15/16 16:00 12/15/16 16:00 12/15/16 16:00 12/15/16 16:00 12/15/16 16:00 Intake and Output: 12/15/16 12/15/16 06:59 18:59 Intake Total 1340 880 Balance 1340 880 - Medications Medications: Current Medications Clonidine HCl (Catapres Tts1 0.1 Mg/24 Hr) 1 patch TD Q7D@1000 EVERT Hydromorphone HCl (Dilaudid) 0.25 mg IVP Q4H PRN PRN Reason: Pain, moderate (4-7) Last Admin: 12/15/16 11:50 Dose: 0.25 mg Sodium Chloride (Sodium Chloride 0.9%) 1,000 mls @ 80 mls/hr IV .[id number] [facility] Last Admin: 12/15/16 14:56 Dose: 80 mls/hr Metronidazole (Flagyl) 500 mg in 100 mls @ 100 mls/hr IVPB Q8 [facility] Last Admin: 12/15/16 14:54 Dose: 100 mls/hr Ceftriaxone Sodium 1 gm/ (Sodium Chloride) 100 mls @ 100 mls/hr IVPB DAILY [facility] Last Admin: 12/15/16 11:09 Dose: 100 mls/hr Nifedipine (Procardia Xl) 30 mg PO DAILY [facility] Last Admin: 12/15/16 11:09 Dose: 30 mg Ondansetron HCl (Zofran Inj) 4 mg IVP Q6H PRN PRN Reason: Nausea/Vomiting Last Admin: 12/14/16 12:47 Dose: 4 mg Pantoprazole Sodium (Protonix Inj) 40 mg IVP DAILY [facility] Last Admin: 12/15/16 11:09 Dose: 40 mg - Labs Labs: 12/15/16 07:10 12/15/16 07:10 PT 10.4 SECONDS (9.7-12.2) 12/14/16 09:13 INR 0.9 12/14/16 09:13 APTT 33 SECONDS (21-34) 12/14/16 09:13 - Head Exam Head Exam: NORMOCEPHALIC - Neck Exam Neck Exam: Normal Inspection - Respiratory Exam Respiratory Exam: NORMAL BREATHING PATTERN - Cardiovascular Exam Cardiovascular Exam: REGULAR RHYTHM - Extremities Exam Extremities Exam: Normal Inspection - Neurological Exam Neurological Exam: Oriented x3 Assessment and Plan (1) Cholecystitis Assessment & Plan: No cardiac issues, maintain electrolyte balance and ambulate. Status: Acute
[2016-12-15] MEDS ORDERED: Simethicone 80 mg Chewtab PO STA (20:18)
--- NOTE | 2016-12-16 00:15 | PN ---
DATE: 12/15/2016 SUBJECTIVE: The patient was seen and examined on the bedside. The mother, , [id number], and daughter were sitting on the bedside. Abdominal pain is getting better, but is still feeling a knot in the stomach. The patient did not want to eat, but she can have clear liquid diet. Going for surgery tomorrow. Went for ERCP today. No fever, no chills. No nausea, vomiting, or diarrhea. PHYSICAL EXAMINATION: VITAL SIGNS: Temperature 98.4, pulse 81, respiratory rate 20, blood pressure 119/77, pulse oximetry 98. HEAD: Normocephalic, atraumatic. EYES: PERRLA. Extraocular muscles intact. Conjunctivae clear. Nose patent. Mucous membranes moist. NECK: Supple. No carotid bruits. No JVD or thyromegaly. CHEST: Bilaterally symmetrical. HEART: S1, S2 positive. LUNGS: Clear to auscultation. ABDOMEN: Soft. Bowel sounds present. No organomegaly. EXTREMITIES: No edema, no cyanosis. NEUROLOGIC: The patient is awake, alert, moving all 4 extremities. No focal deficits. MEDICATIONS: Clonidine, Flagyl, ceftriaxone, nifedipine, Zofran, Protonix. LABORATORY DATA: White blood cells 6.5, hemoglobin 11.6, hematocrit 35.3, platelets 159. Sodium 139, potassium 35, BUN 9, creatinine 0.8, glucose 97. ASSESSMENT AND PLAN: The patient is a 56-year-old lady with leukopenia, which was replaced, history of hypercholesterolemia, came in with right upper quadrant abdominal pain, ultrasound findings indicative of acute cholecystitis. Ultrasound of gallbladder shows calculi up to 2 cm, gallbladder wall 4 mm , negative sonographic Flores sign, prominent common bile duct up to 7 mm, prominent calculus in gallbladder neck, may be current acute cholecystitis. Magnetic resonance cholangiopancreatography done. Continue medical management, especially for blood pressure control, as she has hypertension. The patient is already evaluated by ranger aide and student development advisor for preoperative assessment. According to the ranger aide, the patient is low risk for surgery. According to student development advisor, the patient does not have any cardiac reason to not go for surgery. For more details, please review pulmonary and cardiology notes, so patient is moderate risk for surgery and, according to Dr. Ralph, patient is going for surgery tomorrow. Lengthy family discussion done with the patient's and mother and other family members. All questions answered. Amberly Oneill MD cc: [id number] TT: 12/16/2016 00:15:15 Confirmation # [id number] Dictation # [id number] halle COLLINS
[2016-12-16] MEDS: metroNIDAZOLE IV 500 mg/100 ml 500 MG/100 ML BAG IVPB SCH ×3 (06:19→22:00)
[2016-12-16] MEDS: Sodium Chloride 0.9% 1,000 ML IV SCH ×2 (06:21→06:23)
[2016-12-16] MEDS: NIFEdipine 30 mg ER Tab PO SCH (09:48)
--- NOTE | 2016-12-16 10:27 | CP.PCM.PN ---
Subjective - Date & Time of Evaluation Date of Evaluation: 12/15/16 Time of Evaluation: 15:00 - Subjective Subjective: Patient reports no sob; no more nausea/vomiting; again reports no previous history of htn with last medical visit about a year ago; Objective - Vital Signs/Intake and Output Vital Signs (last 24 hours): Temp Pulse Resp BP Pulse Ox 98.3 F 75 20 129/70 98 12/16/16 08:37 12/16/16 08:37 12/16/16 08:37 12/16/16 08:37 12/16/16 08:37 Intake and Output: 12/16/16 12/16/16 06:59 18:59 Intake Total 740 Balance 740 - Medications Medications: Current Medications Clonidine HCl (Catapres Tts1 0.1 Mg/24 Hr) 1 patch TD Q7D@1000 [facility] Hydromorphone HCl (Dilaudid) 0.25 mg IVP Q4H PRN PRN Reason: Pain, moderate (4-7) Last Admin: 12/15/16 11:50 Dose: 0.25 mg Sodium Chloride (Sodium Chloride 0.9%) 1,000 mls @ 80 mls/hr IV .[id number] [facility] Last Admin: 12/16/16 06:23 Dose: Not Given Metronidazole (Flagyl) 500 mg in 100 mls @ 100 mls/hr IVPB Q8 [facility] Last Admin: 12/16/16 06:19 Dose: 100 mls/hr Ceftriaxone Sodium 1 gm/ (Sodium Chloride) 100 mls @ 100 mls/hr IVPB DAILY [facility] Last Admin: 12/16/16 09:49 Dose: 100 mls/hr Nifedipine (Procardia Xl) 30 mg PO DAILY [facility] Last Admin: 12/16/16 09:48 Dose: 30 mg Ondansetron HCl (Zofran Inj) 4 mg IVP Q6H PRN PRN Reason: Nausea/Vomiting Last Admin: 12/14/16 12:47 Dose: 4 mg Pantoprazole Sodium (Protonix Inj) 40 mg IVP DAILY [facility] Last Admin: 12/16/16 09:48 Dose: 40 mg - Labs Labs: 12/15/16 07:10 12/15/16 07:10 PT 10.4 SECONDS (9.7-12.2) 12/14/16 09:13 INR 0.9 12/14/16 09:13 APTT 33 SECONDS (21-34) 12/14/16 09:13 - Constitutional Appears: Well, No Acute Distress - Head Exam Head Exam: NORMAL INSPECTION - Eye Exam Eye Exam: Normal appearance. absent: Scleral icterus - ENT Exam ENT Exam: Mucous Membranes Moist - Neck Exam Neck Exam: Normal Inspection - Respiratory Exam Respiratory Exam: Clear to Ausculation Bilateral, NORMAL BREATHING PATTERN. absent: Rales, Rhonchi - Cardiovascular Exam Cardiovascular Exam: REGULAR RHYTHM, +S1, +S2. absent: JVD - GI/Abdominal Exam GI & Abdominal Exam: Soft, Tenderness. absent: Distended - Extremities Exam Extremities Exam: Normal Capillary Refill. absent: Pedal Edema - Neurological Exam Neurological Exam: Alert, Oriented x3 - Psychiatric Exam Psychiatric exam: Normal Affect, Normal Mood - Skin Skin Exam: Warm. 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
[2016-12-16 10:31] LABS: CHLORIDE 103 mmol/L (98-107)
[2016-12-16 10:32] LABS: POTASSIUM 3.1 mmol/L (3.6-5.2); SODIUM 135 mmol/L (132-148)
[2016-12-16 10:34] LABS: AST/SGOT 20 U/L (14-36); CARBON DIOXIDE 22 mmol/L (22-30); GFR AFRICAN-AMERICAN > 60
[2016-12-16 10:35] LABS: ALB/GLOB RATIO 1.1 (1.0-2.1); ALKALINE PHOSPHATASE 87 U/L (38-126); ALT/SGPT 21 U/L (9-52); BLOOD UREA NITROGEN 18 mg/dL (7-17); CALCIUM 9.1 mg/dl (8.6-10.4); GLUCOSE,RANDOM 75 mg/dL (65-105)
[2016-12-16] MEDS ORDERED: Midazolam 2 MG/2 ML VIAL ONE (14:16)
[2016-12-16] MEDS ORDERED: Propofol 10 mg/ml Inj (20 ML) ONE (14:16)
[2016-12-16] MEDS ORDERED: Lactated Ringer's 1,000 ML IV ONE ×2 (14:18→16:30)
[2016-12-16] MEDS ORDERED: Bupivacaine HCl 0.25% PF (10 ml) Inj ONE (14:18)
[2016-12-16] MEDS ORDERED: Lidocaine 2% w Epi 1:100,000 Inj IJ ONE (14:18)
[2016-12-16] MEDS ORDERED: Iohexol 240 (50 ml) ONE (14:26)
[2016-12-16] MEDS ORDERED: HYDROmorphone 0.5 mg/0.5 ml ISec IVP PRN (17:02)
--- NOTE | 2016-12-16 17:05 | PCM.SURG1 ---
Surgeon's Initial Post Op Note - Surgeon's Notes Surgeon: Ramo Funeral Director: Ambar SORIANOY2Mauricio Type of Anesthesia: General Endo, Local Pre-Operative Diagnosis: Cholecystitis Operative Findings: acutely inflamed gallbladder Post-Operative Diagnosis: same Operation Performed: robotic assisted cholecystectomy w. IOC Specimen/Specimens Removed: gallbladder Estimated Blood Loss: EBL {In ML}: 10 Blood Products Given: N/A Drains Used: Jordy Post-Op Condition: Good Date of Surgery/Procedure: 12/16/16 Time of Surgery/Procedure: 17:05
[2016-12-16] MEDS ORDERED: Labetalol 25mg/5ml Syringe IVP STA (17:09)
[2016-12-16] MEDS ORDERED: HYDROmorphone 1 mg/ml ISec ONE ×2 (17:09→17:38)
[2016-12-16] MEDS ORDERED: Lactated Ringer's 1,000 ML IV SCH ×2 (17:15→22:00)
--- NOTE | 2016-12-16 18:34 | CP.PCM.PN ---
Subjective - Date & Time of Evaluation Date of Evaluation: 12/16/16 Time of Evaluation: 18:32 - Subjective Subjective: Abdominal pain, no chest pain. Objective - Vital Signs/Intake and Output Vital Signs (last 24 hours): Temp Pulse Resp BP Pulse Ox 98.8 F 93 H 12 138/76 100 12/16/16 17:00 12/16/16 17:32 12/16/16 18:04 12/16/16 18:04 12/16/16 18:04 Intake and Output: 12/16/16 12/16/16 06:59 18:59 Intake Total 740 100 Balance 740 100 - Medications Medications: Current Medications Clonidine HCl (Catapres Tts1 0.1 Mg/24 Hr) 1 patch TD Q7D@1000 [facility] Hydromorphone HCl (Dilaudid) 0.25 mg IVP Q4H PRN PRN Reason: Pain, moderate (4-7) Last Admin: 12/15/16 11:50 Dose: 0.25 mg Hydromorphone HCl (Dilaudid) 0.5 mg IVP Q15M PRN PRN Reason: Pain, severe (8-10) Stop: 12/16/16 19:04 Hydromorphone HCl (Dilaudid) 0.5 mg IVP Q4H PRN PRN Reason: Pain, moderate (4-7) Sodium Chloride (Sodium Chloride 0.9%) 1,000 mls @ 80 mls/hr IV .[id number] [facility] Last Admin: 12/16/16 06:23 Dose: Not Given Metronidazole (Flagyl) 500 mg in 100 mls @ 100 mls/hr IVPB Q8 [facility] Last Admin: 12/16/16 14:45 Dose: Not Given Ceftriaxone Sodium 1 gm/ (Sodium Chloride) 100 mls @ 100 mls/hr IVPB DAILY [facility] Last Admin: 12/16/16 09:49 Dose: 100 mls/hr Lactated Ringer's (Lactated Ringer's) 1,000 mls @ 100 mls/hr IV .Q10H [facility] Potassium Chloride (Potassium Chloride 20 Meq/100 Ml) 20 meq in 100 mls @ 50 mls/hr IVPB ONCE ONE Stop: 12/16/16 19:23 Last Admin: 12/16/16 17:25 Dose: 100 mls Ketorolac Tromethamine (Toradol) 30 mg IVP ONCE PRN PRN Reason: Pain, moderate (4-7) Stop: 12/16/16 19:04 Nifedipine (Procardia Xl) 30 mg PO DAILY [facility] Last Admin: 12/16/16 09:48 Dose: 30 mg Ondansetron HCl (Zofran Inj) 4 mg IVP Q6H PRN PRN Reason: Nausea/Vomiting Last Admin: 12/14/16 12:47 Dose: 4 mg Ondansetron HCl (Zofran Inj) 4 mg IVP ONCE PRN PRN Reason: Nausea/Vomiting Stop: 12/16/16 19:05 Pantoprazole Sodium (Protonix Inj) 40 mg IVP DAILY [facility] Last Admin: 12/16/16 09:48 Dose: 40 mg - Labs Labs: 12/15/16 07:10 12/16/16 10:15 PT 10.4 SECONDS (9.7-12.2) 12/14/16 09:13 INR 0.9 12/14/16 09:13 APTT 33 SECONDS (21-34) 12/14/16 09:13 - Head Exam Head Exam: NORMOCEPHALIC - Neck Exam Neck Exam: Normal Inspection - Respiratory Exam Respiratory Exam: NORMAL BREATHING PATTERN - Cardiovascular Exam Cardiovascular Exam: REGULAR RHYTHM - Neurological Exam Neurological Exam: Oriented x3 Assessment and Plan (1) Cholecystitis Assessment & Plan: No new issues. Pain control and correct electrolytes. Status: Acute
[2016-12-16 20:48] VITALS: RESP 20
--- NOTE | 2016-12-16 20:51 | OP ---
PROCEDURE DATE: 12/16/2016 PREOPERATIVE DIAGNOSES: Acute cholecystitis and cholelithiasis and abnormal LFTs. POSTOPERATIVE DIAGNOSES: 1. Acute on Chronic phlegmonous cholecystitis with cholelithiasis. 2. Extensive postinfectious perihepatic as well as pericholecystic adhesion. 3. Perihepatic and pericholecystic fluid collection. PROCEDURE DONE: 1. Robotic cholecystectomy with intraoperative cholangiogram. 2. Robotic extensive lysis of adhesions. 3. Robotic drainage of pericholecystic and right upper quadrant fluid collection. SURGEON: Bobby Ralph M.D. INSULATION CUTTER AND FORMER: Sandra Art. Sandra was present from the beginning up to the end of the procedure, helped in the prepping and draping, placement of the port, docking and undocking of the robot and closure of the wound. ANESTHESIA: General endotracheal tube anesthesia. ESTIMATED BLOOD LOSS: Around 50 mL. DRAINS: A 19-Sinhala Jordy drain was placed. COMPLICATIONS: None. INTRAOPERATIVE FINDINGS: The patient had [id number] phlegmonous cholecystitis with cholelithiasis with extensive postinfectious adhesions between the colon to the gallbladder and duodenum, as well as to the liver to the anterior abdominal wall and there was a pericholecystic and right upper quadrant fluid collection. IOC was suggestive of no evidence of CBC stone or obstruction. Due to extensive nature of the procedure, it took approximately 60- 80 minutes extra for the routine procedure. INTRAOPERATIVE STEPS: This 56-year-old female who was diagnosed with acute cholecystitis and cholelithiasis and the patient had abnormal LFTs. The patient was consented for the robotic cholecystectomy, possible open with intraoperative cholangiogram, possible open, and the patient was brought to the OR, placed supine on the operating table. After induction of the anesthesia, abdomen was prepped and draped in the usual sterile fashion. Supraumbilical transverse 1.5 cm incision was made. After incising skin and subcutaneous tissue, the fascia was incised in the line of incision. Andressa port was placed , pneumo was created. After creation of pneumoperitoneum, the two 8 mm ports were placed in the right flank and the left upper quadrant and another two 5 mm ports were placed in the midclavicular line on the right side, as well as the left side, and the robot was brought in and the robotic camera arm, as well as arm 1 and arm 2 was docked, and gallbladder was identified. Gallbladder appeared to be extremely thickened, edematous and there were phlegmonous changes. With blunt and sharp dissection, the gallbladder was from the colon and the gallbladder was aspirated and gallbladder was retracted cranially. There was infundibulum to the duodenum extensive lysis of adhesion was done and the perihepatic and pericholecystic fluid and the fluid collection was suctioned out. Intraoperative Firefly was used to identify the cystic duct , common bile duct and cystic artery. After top down approach and after critical view of the safety, the cystic duct was opened up and catheter was placed and a balloon catheter was placed and dye was injected. At this time, the robot was undocked and taken away from the table for intraoperative fluoroscopy. After proper cholangiogram, the robot was brought in and camera arm and arm 1 and arm 2 was docked and cystic duct was clipped at 3 places and cut in between 2 clips near the gallbladder. Cystic artery was also clipped and cut, and the gallbladder was dissected free from the gallbladder fossa, taken in EndoCatch bag, taken out through the umbilical port site and sent off the table for the pathology. There was a proper hemostasis in each and every part of the procedure. Due to the extensive nature of the inflammation and fluid collection, the drain was placed and drain was secured to the skin. The umbilical port site was closed in 2 layers, the fascia with 0 Vicryl interrupted suture, skin with a 4-0 Monocryl and dry sterile dressing was applied. The patient tolerated the procedure well. Count of instruments and gauze was correct. There was no apparent complication. The patient was extubated in the OR, sent to the postanesthesia care unit in stable condition. Bobby Ralph MD cc: [id number] TT: 12/16/2016 20:50:37 niki COLLINS
[2016-12-17] MEDS: HYDROmorphone 0.5 mg/0.5 ml ISec IVP PRN ×2 (04:24→15:54)
[2016-12-17] MEDS: metroNIDAZOLE IV 500 mg/100 ml 500 MG/100 ML BAG IVPB SCH ×3 (06:03→21:45)
--- NOTE | 2016-12-17 07:25 | CP.PCM.PN ---
<William Villalta - Last Filed: 12/17/16 07:23> Subjective - Date & Time of Evaluation Date of Evaluation: 12/17/16 Time of Evaluation: 07:23 - Subjective Subjective: Surgery: Dr. Ralph Pt seen and examined. Resting comfortably in bed. Pain controlled. Tolerating diet. No N/V. Ambulating w. out difficulty. Objective - Vital Signs/Intake and Output Vital Signs (last 24 hours): Temp Pulse Resp BP Pulse Ox 99 F 86 20 117/59 L 97 12/16/16 23:23 12/16/16 23:23 12/16/16 23:23 12/16/16 23:23 12/16/16 23:23 Intake and Output: 12/17/16 12/17/16 06:59 18:59 Intake Total 1300 Output Total 75 Balance 1225 - Medications Medications: Current Medications Clonidine HCl (Catapres Tts1 0.1 Mg/24 Hr) 1 patch TD Q7D@1000 [facility] Hydromorphone HCl (Dilaudid) 0.5 mg IVP Q4H PRN PRN Reason: Pain, moderate (4-7) Last Admin: 12/17/16 04:24 Dose: 0.5 mg Metronidazole (Flagyl) 500 mg in 100 mls @ 100 mls/hr IVPB Q8 [facility] Last Admin: 12/17/16 06:03 Dose: 100 mls/hr Ceftriaxone Sodium 1 gm/ (Sodium Chloride) 100 mls @ 100 mls/hr IVPB DAILY [facility] Last Admin: 12/16/16 09:49 Dose: 100 mls/hr Lactated Ringer's (Lactated Ringer's) 1,000 mls @ 100 mls/hr IV .Q10H [facility] Last Admin: 12/16/16 21:59 Dose: 100 mls/hr Nifedipine (Procardia Xl) 30 mg PO DAILY [facility] Last Admin: 12/16/16 09:48 Dose: 30 mg Ondansetron HCl (Zofran Inj) 4 mg IVP Q6H PRN PRN Reason: Nausea/Vomiting Last Admin: 12/14/16 12:47 Dose: 4 mg Pantoprazole Sodium (Protonix Inj) 40 mg IVP DAILY [facility] Last Admin: 12/16/16 09:48 Dose: 40 mg - Labs Labs: 12/15/16 07:10 12/16/16 10:15 PT 10.4 SECONDS (9.7-12.2) 12/14/16 09:13 INR 0.9 12/14/16 09:13 APTT 33 SECONDS (21-34) 12/14/16 09:13 - Constitutional Appears: Non-toxic, No Acute Distress - Head Exam Head Exam: ATRAUMATIC - Eye Exam Eye Exam: EOMI - ENT Exam ENT Exam: Mucous Membranes Moist - Neck Exam Neck Exam: Full ROM - Respiratory Exam Respiratory Exam: NORMAL BREATHING PATTERN. absent: Accessory Muscle Use, Respiratory Distress - GI/Abdominal Exam GI & Abdominal Exam: Soft, Tenderness (mild madeleine-incisional ). absent: Distended, Firm, Guarding, Rigid Additional comments: Jordy in place R mid abd - Extremities Exam Extremities Exam: absent: Calf Tenderness, Pedal Edema - Neurological Exam Neurological Exam: Alert, Awake, Oriented x3 Assessment and Plan - Assessment and Plan (Free Text) Assessment: 56F w. cholecystitis s/p robotic assisted kem, POD#1 -jordy 70cc/12 hr serosang, continue to monitor -F/U AM labs -D/C IVF -c/w pain management -encourage ambulation -d/w attending Ambar PGY2 <Bobby Ralph B - Last Filed: 12/19/16 14:14> Objective - Vital Signs/Intake and Output Vital Signs (last 24 hours): Temp Pulse Resp BP Pulse Ox 98.0 F 68 20 135/77 97 12/18/16 08:00 12/18/16 08:00 12/18/16 08:00 12/18/16 08:00 12/17/16 23:18 - Labs Labs: 12/18/16 07:07 12/18/16 07:07 PT 10.4 SECONDS (9.7-12.2) 12/14/16 09:13 INR 0.9 12/14/16 09:13 APTT 33 SECONDS (21-34) 12/14/16 09:13 Attending/Attestation - Attestation I have personally seen and examined this patient.: Yes I have fully participated in the care of the patient.: Yes I have reviewed all pertinent clinical information, including history, physical exam and plan: Yes Notes (Text): 12/19/16 14:10 Pt was seen and examined at bedside on 12/17/16 Agree with above note and assessment
--- NOTE | 2016-12-17 07:53 | PN ---
DATE: 12/16/2016 SUBJECTIVE: The patient was seen and examined on the bedside. Seen before surgery. Still having pain. No nausea or vomiting. No chest pain. No palpitation. No headache, no dizziness. No coughing. No fever. PHYSICAL EXAMINATION: VITAL SIGNS: Temperature 98.9, pulse 88, blood pressure 137/ 80 , respiratory rate 20. HEENT: Head normocephalic, atraumatic. Eyes: PERRLA. Extraocular muscles intact. Conjunctivae are clear. Nose patent. Mucous membranes moist. NECK: Supple. No carotid bruit, JVD or thyromegaly. CHEST: Bilaterally symmetrical. HEART: S1, S2 positive. LUNGS: Clear to auscultation. ABDOMEN: Soft. Tender in the right upper quadrant. EXTREMITIES: No edema, no cyanosis. NEUROLOGIC: The patient is awake, alert. Moving all 4 extremities. No focal deficits. MEDICATIONS: Clonidine, ceftriaxone, Dilaudid, Flagyl, Protonix, IV fluids, and Zofran. LABORATORY DATA: We do not have recent labs today, but I reviewed old labs. We have sodium 135, potassium 3.1, BUN 18, creatinine 1.0, glucose 75, bilirubin 2.0. ASSESSMENT AND PLAN: The patient on a 56-year-old lady with hypokalemia ( replaced), increased BUN, hyperglycemia, abnormal liver function test, hypercholesterolemia, hypertriglyceridemia. Toxicology shows urine opiates screen positive, maybe she was taking pain medication. Has acute cholecystitis , went for robotic cholecystectomy. No new issues. Pain control and correct electrolytes. Seen by the bone cooking operator and front office attendant/Dr. Sal Vila for uncontrolled hypertension. During surgery, finding was acutely inflamed gallbladder. Robotic-assisted cholecystectomy done by Dr. Ralph. Fluoroscopy was done also. MRCP done. Repeat labs. Will follow up. Amberly Oneill MD cc: [id number] TT: 12/16/2016 22:12:15 Confirmation # [id number] Dictation # [id number] niki COLLINS
[2016-12-17 08:13] LABS: HEMATOCRIT 31.9 % (34.0-47.0); MEAN CELL VOLUME 85.5 fL (81.0-99.0); MEAN CORPUSCULAR HEMOGLOBIN 27.9 pg (27.0-31.0); MEAN CORPUSCULAR HGB CONC 32.6 g/dL (33.0-37.0); MEAN PLATELET VOLUME 10.8 fL (7.2-11.7); RED CELL DISTRIBUTION WIDTH 14.1 % (11.5-14.5); WHITE BLOOD COUNT 6.5 K/uL (4.8-10.8)
[2016-12-17 08:51] LABS: ALKALINE PHOSPHATASE 79 U/L (38-126); ALT/SGPT 49 U/L (9-52); AST/SGOT 63 U/L (14-36); BILIRUBIN,TOTAL 1.5 mg/dL (0.2-1.3); BLOOD UREA NITROGEN 13 mg/dL (7-17); CALCIUM 9.2 mg/dl (8.6-10.4); CARBON DIOXIDE 26 mmol/L (22-30); CHLORIDE 101 mmol/L (98-107); GFR AFRICAN-AMERICAN > 60; GLUCOSE,RANDOM 103 mg/dL (65-105); POTASSIUM 3.4 mmol/L (3.6-5.2); SODIUM 134 mmol/L (132-148); TOTAL PROTEIN 6.4 g/dL (6.3-8.3)
[2016-12-17] MEDS: NIFEdipine 30 mg ER Tab PO SCH (09:32)
[2016-12-17] MEDS ORDERED: Potassium Chloride 20 mEq ER Tab PO ONE (09:45)
--- NOTE | 2016-12-17 09:56 | CP.PCM.PN ---
Subjective - Date & Time of Evaluation Date of Evaluation: 12/16/16 Time of Evaluation: 16:30 - Subjective Subjective: Nephrology f/u note, seeing patient for uncontrolled htn; Patient denies sob, pain improved s/p cholecytectomy; Objective - Vital Signs/Intake and Output Vital Signs (last 24 hours): Temp Pulse Resp BP Pulse Ox 98 F 66 20 148/73 99 12/17/16 08:37 12/17/16 08:37 12/17/16 08:37 12/17/16 08:37 12/17/16 08:37 Intake and Output: 12/17/16 12/17/16 06:59 18:59 Intake Total 1300 Output Total 75 Balance 1225 - Medications Medications: Current Medications Clonidine HCl (Catapres Tts1 0.1 Mg/24 Hr) 1 patch TD Q7D@1000 [facility] Hydromorphone HCl (Dilaudid) 0.5 mg IVP Q4H PRN PRN Reason: Pain, moderate (4-7) Last Admin: 12/17/16 04:24 Dose: 0.5 mg Metronidazole (Flagyl) 500 mg in 100 mls @ 100 mls/hr IVPB Q8 [facility] Last Admin: 12/17/16 06:03 Dose: 100 mls/hr Ceftriaxone Sodium 1 gm/ (Sodium Chloride) 100 mls @ 100 mls/hr IVPB DAILY [facility] Last Admin: 12/17/16 09:32 Dose: 100 mls/hr Nifedipine (Procardia Xl) 30 mg PO DAILY [facility] Last Admin: 12/17/16 09:32 Dose: 30 mg Ondansetron HCl (Zofran Inj) 4 mg IVP Q6H PRN PRN Reason: Nausea/Vomiting Last Admin: 12/14/16 12:47 Dose: 4 mg Pantoprazole Sodium (Protonix Inj) 40 mg IVP DAILY [facility] Last Admin: 12/17/16 09:32 Dose: 40 mg - Labs Labs: 12/17/16 08:02 12/17/16 08:02 PT 10.4 SECONDS (9.7-12.2) 12/14/16 09:13 INR 0.9 12/14/16 09:13 APTT 33 SECONDS (21-34) 12/14/16 09:13 - Constitutional Appears: Well, No Acute Distress - Head Exam Head Exam: NORMAL INSPECTION - Eye Exam Eye Exam: Normal appearance. absent: Scleral icterus - ENT Exam ENT Exam: Mucous Membranes Moist - Neck Exam Neck Exam: Normal Inspection - Respiratory Exam Respiratory Exam: Clear to Ausculation Bilateral, NORMAL BREATHING PATTERN. absent: Rales, Rhonchi, Wheezes - Cardiovascular Exam Cardiovascular Exam: REGULAR RHYTHM, +S1, +S2 - Extremities Exam Extremities Exam: Normal Capillary Refill. 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
--- NOTE | 2016-12-17 11:54 | RAD ---
PROCEDURE: HISTORY: CHOLECYSTITIS COMPARISON: MRCP 12/15/2016 TECHNIQUE: Fluoroscopy was provided to Dr. Ralph. For a cholangiogram FINDINGS: Please note the referring physician procedural note IMPRESSION: Fluoroscopy provided for the above
--- NOTE | 2016-12-17 12:26 | CP.PCM.PN ---
Subjective - Date & Time of Evaluation Date of Evaluation: 12/17/16 Time of Evaluation: 12:23 - Subjective Subjective: Some abdominal discomfort. S/P cholecystectomy. Objective - Vital Signs/Intake and Output Vital Signs (last 24 hours): Temp Pulse Resp BP Pulse Ox 98 F 66 20 148/73 99 12/17/16 08:37 12/17/16 08:37 12/17/16 08:37 12/17/16 08:37 12/17/16 08:37 Intake and Output: 12/17/16 12/17/16 06:59 18:59 Intake Total 1300 Output Total 75 Balance 1225 - Medications Medications: Current Medications Clonidine HCl (Catapres Tts1 0.1 Mg/24 Hr) 1 patch TD Q7D@1000 [facility] Hydromorphone HCl (Dilaudid) 0.5 mg IVP Q4H PRN PRN Reason: Pain, moderate (4-7) Last Admin: 12/17/16 04:24 Dose: 0.5 mg Metronidazole (Flagyl) 500 mg in 100 mls @ 100 mls/hr IVPB Q8 [facility] Last Admin: 12/17/16 06:03 Dose: 100 mls/hr Ceftriaxone Sodium 1 gm/ (Sodium Chloride) 100 mls @ 100 mls/hr IVPB DAILY [facility] Last Admin: 12/17/16 09:32 Dose: 100 mls/hr Nifedipine (Procardia Xl) 30 mg PO DAILY [facility] Last Admin: 12/17/16 09:32 Dose: 30 mg Ondansetron HCl (Zofran Inj) 4 mg IVP Q6H PRN PRN Reason: Nausea/Vomiting Last Admin: 12/14/16 12:47 Dose: 4 mg Pantoprazole Sodium (Protonix Inj) 40 mg IVP DAILY [facility] Last Admin: 12/17/16 09:32 Dose: 40 mg - Labs Labs: 12/17/16 08:02 12/17/16 08:02 PT 10.4 SECONDS (9.7-12.2) 12/14/16 09:13 INR 0.9 12/14/16 09:13 APTT 33 SECONDS (21-34) 12/14/16 09:13 - Head Exam Head Exam: NORMOCEPHALIC - Neck Exam Neck Exam: Normal Inspection - Respiratory Exam Respiratory Exam: NORMAL BREATHING PATTERN - Cardiovascular Exam Cardiovascular Exam: REGULAR RHYTHM - Neurological Exam Neurological Exam: Oriented x3 Assessment and Plan (1) Cholecystitis Assessment & Plan: S/P cholecystectomy, recovering well. Hypokalemia, supplement and maintain electrolyte balance. Status: Acute
--- NOTE | 2016-12-17 21:01 | PN ---
DATE: 12/17/2016 NEPHROLOGY FOLLOWUP NOTE HISTORY OF PRESENT ILLNESS: A 56-year-old female with past medical history of hyperlipidemia, admitt ed with acute cholecystitis, found to have hypertensive urgency. Nephrology following for the same. The patient reports feeling well, tolerated diet. Denies any shortness of breath. Pain has improved . PHYSICAL EXAMINATION: VITAL SIGNS: This morning, blood pressure 148/73, heart rate 66, respirations 20, temperature 98.0, O2 sat 99% on room air. GENERAL: No distress, conversing incoherently in full sentences. HEENT: Moist mucous membranes. Nonicteric. CHEST: Clear to auscultation bilaterally. No rales or rhonchi, no wheezes. HEART: S1, S2 normal. No murmurs, no gallops, no rubs. ABDOMEN: Soft. EXTREMITIES: No leg edema. Normal capillary refill. PSYCHIATRIC: Normal mood, normal affect. LABORATORY DATA: WBC , hemoglobin 10.4, hematocrit 31.9, platelets 145. Chemistry: Sodium 134 , potassium 3.4, chloride 101, bicarbonate 26, BUN 13, creatinine 0.9. T-bili 1.5, albumin 3.2. Cho lesterol from 2 days ago: Total cholesterol 365, LDL 208. ASSESSMENT AND PLAN: 1. Hypertensive urgency, likely worsened by pain and anxiety. The patient started on nifedipine XL 30 mg daily. Blood pressure better controlled overall. Discussed lifestyle changes with patient, in cluding dietary modifications and weight loss, and that she should follow up with her PMD, who will d ecide whether she needs antihypertensive therapy or not. Continue nifedipine XL 30 mg daily for now. 2. Hyperlipidemia. The patient with known diagnosis previously. Has not been on any medical manage ment for this. Discussed lifestyle modifications, including diet and exercise with the patient. Ex plained to patient that hypertension and hyperlipidemia put her at risk for heart disease, cardiovasc ular disease. 3. Urinary frequency. No glucosuria or hyperglycemia. The patient may need urologic followup as out patient for this. 4. Incidental finding of echogenic kidneys. Likely a subjective finding, no significant proteinuria. Overall prognosis is good. 5. Pain. The patient should avoid NSAIDs as this can increase blood pressure. Sal Vila MD cc: [id number] TT: 12/17/2016 21:00:37 Confirmation # [id number] Dictation # [id number]
[2016-12-17 23:19] VITALS: O2SAT 97
[2016-12-18] MEDS: metroNIDAZOLE IV 500 mg/100 ml 500 MG/100 ML BAG IVPB SCH ×2 (06:07→14:30)
[2016-12-18] MEDS: HYDROmorphone 0.5 mg/0.5 ml ISec IVP PRN (06:40)
--- NOTE | 2016-12-18 07:17 | PN ---
DATE: 12/17/2016 SUBJECTIVE: The patient was seen and examined at the bedside, having abdominal pain, having a liquid diet, tolerating very well, passing gas but not stool yet. Pain is improved. PHYSICAL EXAMINATION: VITAL SIGNS: Heart rate 66, respiratory rate 20, blood pressure 148/73, and temperature 98.0. HEAD: Normocephalic, atraumatic. EYES: PERRLA. Extraocular muscles intact. Conjunctivae clear. NOSE: Patent. MOUTH: Mucous membranes moist. NECK: Supple. No carotid bruit, JVD or thyromegaly. CHEST: Bilaterally symmetrical. HEART: S1, S2 positive. LUNGS: Clear to auscultation. ABDOMEN: Soft. Tender at surgical site, had ROBERT draining. EXTREMITIES: No edema, no cyanosis noted. NEUROLOGIC: Awake, alert, moving all 4 extremities, no focal deficits. LABORATORY DATA: Hemoglobin 10.4, hematocrit 31.9, and platelets 145. Sodium 134, potassium 3.4, BUN 13, creatinine 0.9. Total bilirubin 1.5. Cholesterol 365. ASSESSMENT AND PLAN: The patient is a 56-year-old female with hypertensive urgency, likely worsening by pain and anxiety. The patient was started on nifedipine and her blood pressure is getting better control. Lengthy time discussion done with the patient and the patient's for lifestyle modifications, avoiding salt. Hypercholesterolemia, new onset, as per patient. We will start medication. Urinary frequency. Echogenic kidneys likely, subjective finding, no significant proteinuria. Overall prognosis is good. The patient should avoid NSAIDs as per Dr. Sal Vila. The patient is seen by Dr. Jackson, vice president of manufacturing, also. Status post cholecystectomy, recovering. Hypokalemia. Supplement and maintain electrolyte imbalance, recovering. Seen by the surgical team of Dr. Ralph. PUD . Will continue to monitor, discontinue IV fluids, getting pain management. Encouraged ambulation. I will start Lipitor for cholesterol. We will follow up. Amberly Oneill MD cc: [id number] TT: 12/18/2016 07:16:25 Confirmation # [id number] Dictation # [id number] nn [id number]
[2016-12-18 07:27] LABS: BASO % 0.4 % (0.0-2.0); EOS % 0.7 % (0.0-4.0); HEMATOCRIT 30.7 % (34.0-47.0); LYMPH # 1.7 K/uL (1.0-4.3); LYMPH % 33.8 % (20.0-40.0); MEAN CELL VOLUME 85.7 fL (81.0-99.0); MEAN CORPUSCULAR HEMOGLOBIN 28.8 pg (27.0-31.0); MEAN CORPUSCULAR HGB CONC 33.6 g/dL (33.0-37.0); MEAN PLATELET VOLUME 10.7 fL (7.2-11.7); MONO # 0.5 K/uL (0.0-0.8); MONO % 10.6 % (0.0-10.0); NRBC % 0.1 % (0.0-2.0); RED CELL DISTRIBUTION WIDTH 14.4 % (11.5-14.5); WHITE BLOOD COUNT 4.9 K/uL (4.8-10.8)
[2016-12-18 07:47] LABS: CHLORIDE 99 mmol/L (98-107)
[2016-12-18 07:48] LABS: POTASSIUM 3.3 mmol/L (3.6-5.2); SODIUM 137 mmol/L (132-148)
[2016-12-18 07:50] LABS: ALKALINE PHOSPHATASE 71 U/L (38-126); AST/SGOT 49 U/L (14-36); BILIRUBIN,TOTAL 1.5 mg/dL (0.2-1.3); BLOOD UREA NITROGEN 8 mg/dL (7-17); CARBON DIOXIDE 29 mmol/L (22-30); GFR AFRICAN-AMERICAN > 60; GLUCOSE,RANDOM 90 mg/dL (65-105); TOTAL PROTEIN 6.5 g/dL (6.3-8.3)
[2016-12-18 07:51] LABS: ALT/SGPT 40 U/L (9-52); CALCIUM 8.9 mg/dl (8.6-10.4)
[2016-12-18] MEDS ORDERED: Potassium Chloride 20 mEq ER Tab PO STA (07:57)
--- NOTE | 2016-12-18 08:03 | CP.PCM.PN ---
<William Villalta - Last Filed: 12/18/16 08:17> Subjective - Date & Time of Evaluation Date of Evaluation: 12/18/16 Time of Evaluation: 08:01 - Subjective Subjective: Surgery: Dr. Ralph Pt seen and examined. Resting comfortably in bed. Pain controlled. Mild intermittent nausea. No Vomiting. No F/C. Ambulating w. out difficulty. Objective - Vital Signs/Intake and Output Vital Signs (last 24 hours): Temp Pulse Resp BP Pulse Ox 98.4 F 75 20 124/77 97 12/17/16 23:18 12/17/16 23:18 12/17/16 23:18 12/17/16 23:18 12/17/16 23:18 Intake and Output: 12/18/16 12/18/16 06:59 18:59 Intake Total 100 Output Total 70 Balance 30 - Medications Medications: Current Medications Clonidine HCl (Catapres Tts1 0.1 Mg/24 Hr) 1 patch TD Q7D@1000 [facility] Fenofibrate (Tricor) 145 mg PO QPM [facility] Hydromorphone HCl (Dilaudid) 0.5 mg IVP Q4H PRN PRN Reason: Pain, moderate (4-7) Last Admin: 12/18/16 06:40 Dose: 0.5 mg Metronidazole (Flagyl) 500 mg in 100 mls @ 100 mls/hr IVPB Q8 [facility] Last Admin: 12/18/16 06:07 Dose: 100 mls/hr Ceftriaxone Sodium 1 gm/ (Sodium Chloride) 100 mls @ 100 mls/hr IVPB DAILY [facility] Last Admin: 12/17/16 09:32 Dose: 100 mls/hr Nifedipine (Procardia Xl) 30 mg PO DAILY [facility] Last Admin: 12/17/16 09:32 Dose: 30 mg Ondansetron HCl (Zofran Inj) 4 mg IVP Q6H PRN PRN Reason: Nausea/Vomiting Last Admin: 12/14/16 12:47 Dose: 4 mg Pantoprazole Sodium (Protonix Inj) 40 mg IVP DAILY [facility] Last Admin: 12/17/16 09:32 Dose: 40 mg Potassium Chloride (K-Dur 20 Meq Er Tab) 40 meq PO STAT STA Stop: 12/18/16 07:58 Rosuvastatin Calcium (Crestor) 10 mg PO HS [facility] - Labs Labs: 12/18/16 07:07 12/18/16 07:07 PT 10.4 SECONDS (9.7-12.2) 12/14/16 09:13 INR 0.9 12/14/16 09:13 APTT 33 SECONDS (21-34) 12/14/16 09:13 - Constitutional Appears: Non-toxic, No Acute Distress - Head Exam Head Exam: ATRAUMATIC, NORMOCEPHALIC - Eye Exam Eye Exam: EOMI - ENT Exam ENT Exam: Mucous Membranes Moist - Neck Exam Neck Exam: Full ROM - Respiratory Exam Respiratory Exam: NORMAL BREATHING PATTERN. absent: Accessory Muscle Use, Respiratory Distress - GI/Abdominal Exam GI & Abdominal Exam: Soft. absent: Distended, Firm, Guarding, Rigid, Tenderness , Rebound Additional comments: Jordy in place - Extremities Exam Extremities Exam: absent: Calf Tenderness, Pedal Edema - Neurological Exam Neurological Exam: Alert, Awake, Oriented x3 Assessment and Plan - Assessment and Plan (Free Text) Assessment: 56F w. cholecystitis, s/p robotic kem, POD#2 -LFTs trending down -Jordy 20cc/12hr serosang -Pt is clear for D/C from surgical standpoint -To be D/C w. drain in place -Follow up w. Dr. Ralph in 2 weeks -Recommend percocet for pain -d/w attending Zemaitis PGY2 <Bobby Ralph - Last Filed: 12/19/16 14:27> Objective - Vital Signs/Intake and Output Vital Signs (last 24 hours): Temp Pulse Resp BP Pulse Ox 98.0 F 68 20 135/77 97 12/18/16 08:00 12/18/16 08:00 12/18/16 08:00 12/18/16 08:00 12/17/16 23:18 - Labs Labs: 12/18/16 07:07 12/18/16 07:07 PT 10.4 SECONDS (9.7-12.2) 12/14/16 09:13 INR 0.9 12/14/16 09:13 APTT 33 SECONDS (21-34) 12/14/16 09:13 Attending/Attestation - Attestation I have personally seen and examined this patient.: Yes I have fully participated in the care of the patient.: Yes I have reviewed all pertinent clinical information, including history, physical exam and plan: Yes Notes (Text): 12/19/16 14:26 Pt was seen and examined at bedside on 12/18/16 Agree with above note and assessment Pt can be DC home with drain Po antibiotics for 7 days Drain removal as out pt Plan d.w pt in detail.
[2016-12-18 09:07] VITALS: BP 135/77; PULSE 68; TEMP 98
[2016-12-18] MEDS: NIFEdipine 30 mg ER Tab PO SCH (09:47)
--- NOTE | 2016-12-18 17:16 | CP.PCM.PN ---
Subjective - Date & Time of Evaluation Date of Evaluation: 12/18/16 Time of Evaluation: 11:00 - Subjective Subjective: Alert, awake, NAD. Objective - Vital Signs/Intake and Output Vital Signs (last 24 hours): Temp Pulse Resp BP Pulse Ox 98.0 F 68 20 135/77 97 12/18/16 08:00 12/18/16 08:00 12/18/16 08:00 12/18/16 08:00 12/17/16 23:18 Intake and Output: 12/18/16 12/18/16 06:59 18:59 Intake Total 100 500 Output Total 70 20 Balance 30 480 - Labs Labs: 12/18/16 07:07 12/18/16 07:07 PT 10.4 SECONDS (9.7-12.2) 12/14/16 09:13 INR 0.9 12/14/16 09:13 APTT 33 SECONDS (21-34) 12/14/16 09:13 Assessment and Plan - Assessment and Plan (Free Text) Assessment: Patient is seen and examined. Alert and orientedx3, no acute pain or distress. Post op , drainage tube in place. D/W DR Oneill, cleared by surgery for discharge with instructions to care for the tube and follow up with surgeon in 2 weeks. Advised to f/u in the office in 1 week.
--- NOTE | 2017-03-16 16:45 | DS ---
CHIEF COMPLAINT: Right upper quadrant abdominal pain, nausea and vomiting. HISTORY OF PRESENT ILLNESS: The patient is a 56-year-old female with past medical history nonsignificant came in [facility] with abdominal, pain started after eating chicken last night and the patient reports associated with nausea and vomiting that do not have blood, nonbilious vomiting. Denied fever or chills. No shortness of breath. No hematuria, no hematochezia. We admitted the patient. Seen by the residential sales consultant, Carleen Jackson MD for cardiac clearance; Dr. Earl Wang for pulmonary clearance. The patient got surgery, cholecystectomy, got better. Recovered very well. Sent home on 12/18/2016. Follow up with surgeon and primary care physician. Prescription of medications given. PAST MEDICAL HISTORY: Nonsignificant except hypercholesterolemia. FAMILY HISTORY: Father and mother noncontributory. HABITS: No smoking, no drugs, no ethanol. REVIEW OF SYSTEMS: The patient was seen and examined on the bedside, looks comfortable. No nausea, vomiting, or diarrhea. No hematuria or hematochezia. No swelling of the leg. No chest pain, no palpitation, no headache, no dizziness. Abdominal pain got better. PHYSICAL EXAMINATION: VITAL SIGNS: Temperature 98, pulse 68, respiratory rate 20, blood pressure 130/ 77, and pulse oximetry 97. HEAD: Normocephalic, atraumatic. EYES: PERRLA. Extraocular muscles are intact. Conjunctivae are clear. Nose patent. Mucous membranes moist. NECK: Supple. No carotid bruit, JVD or thyromegaly. CHEST: Bilaterally symmetrical. HEART: S1, S2 positive. LUNGS: Clear to auscultation. ABDOMEN: Soft. Tender at surgical site. Bowel sounds positive. No organomegaly. EXTREMITIES: No edema, no cyanosis. NEUROLOGIC: The patient is awake, alert, moving all 4 extremities. LABORATORY DATA: White blood cells 4.9, hemoglobin 10.3, hematocrit 30.7, and platelets 144. Sodium 137, potassium 3.3, BUN 8, creatinine 0.8, glucose 90. ASSESSMENT AND PLAN: The patient is a 56-year-old female with anemia, hypokalemia, came with right upper quadrant abdominal pain, got surgery, postoperative, drainage tube in place. The surgeon cleared the patient for discharge. Follow up in their office. History of hypertensive urgency. The patient was started on nifedipine, blood pressure got better. discussed with patient and patient's , avoiding salt. Hypercholesterolemia, started on medication, kidney function was slightly abnormal. Education done. Renal consult called . The patient was educated to avoid salt . The patient was seen by the residential sales consultant, fishing rod mechanic, status post cholecystectomy, recovering very well. Hypokalemia was replaced. Discontinue IV fluid. Lipitor started. Discharged home on 12/18/2016 by nurse practitioner Emani MEYER. Prescription for medication given. Follow up with primary care physician and with surgery. KARINA
== END 2016-12-18 14:35 | disposition home or self-care (01) | DRG 493 ==
LOC: C.ER 08:08 → C.9E 10:38 → C.3T 15:02
PROVIDERS: ADMIT Internal Medicine; ATTEND Internal Medicine
PROC: 0DN94ZZ Release Duodenum, Percutaneous Endoscopic Approach (ICD-10-PCS; 2016-12-16)
PROC: BF03YZZ Plain Radiography of Gallbladder and Bile Ducts using Other Contrast (ICD-10-PCS; 2016-12-16)
PROC: 0DNE4ZZ Release Large Intestine, Percutaneous Endoscopic Approach (ICD-10-PCS; 2016-12-16)
PROC: 8E0W4CZ Robotic Assisted Procedure of Trunk Region, Percutaneous Endoscopic Approach (ICD-10-PCS; 2016-12-16)
PROC: 0FT44ZZ Resection of Gallbladder, Percutaneous Endoscopic Approach (ICD-10-PCS; principal; 2016-12-16 14:00)
DX: K80.12 Calculus of gallbladder with acute and chronic cholecystitis without obstruction (principal); R18.8 Other ascites; E87.8 Other disorders of electrolyte and fluid balance, not elsewhere classified; E87.6 Hypokalemia; K66.0 Peritoneal adhesions (postprocedural) (postinfection); E78.00 Pure hypercholesterolemia, unspecified; R79.89 Other specified abnormal findings of blood chemistry; E78.5 Hyperlipidemia, unspecified; I10 Essential (primary) hypertension; I16.0 Hypertensive urgency; R35.0 Frequency of micturition; D72.819 Decreased white blood cell count, unspecified; E78.1 Pure hyperglyceridemia; F41.9 Anxiety disorder, unspecified; K27.9 Peptic ulcer, site unspecified, unspecified as acute or chronic, without hemorrhage or perforation

== ENCOUNTER 2017-03-24 17:44 | Emergency (ER) | payer MEDICAID, OTHER ==
[2017-03-24 17:44] VITALS: BMI 24.6
[2017-03-24] MEDS ORDERED: Aspirin 325 mg EC Tablets PO STA (19:42)
--- NOTE | 2017-03-24 19:57 | C.PDOC ---
History Of Present Illness 56 y/o female presents to ED with complaints of constant left arm pain and tingling with radiation to left sided chest. Patient states she was laying down resting when she started to feel pain on left arm and tinging feeling to fingers. Patient also states pain radiated to chest and she felt tightness. Patient reports pain is always there but is worse with movement of left arm and denies sob, nausea, vomiting, abdominal pain, fever or any other complaints at this time. Time Seen by Provider: 03/24/17 19:03 Chief Complaint (Nursing): Chest Pain History Per: Patient History/Exam Limitations: no limitations Onset/Duration Of Symptoms: Days Current Symptoms Are (Timing): Still Present Quality: Tightness Past Medical History Reviewed: Historical Data, Nursing Documentation, Vital Signs Vital Signs: Last Vital Signs Temp Pulse Resp BP Pulse Ox 100 03/24/17 19:58 - Medical History PMH: HTN, Hypercholesterolemia Surgical History: Cholecystectomy - [facility] Procedures RADIOGRAPHY OF GALLBLADDER & BILE DUCT USING OTH CONTRAST (12/14/16) RELEASE DUODENUM, PERCUTANEOUS ENDOSCOPIC APPROACH (12/14/16) RELEASE LARGE INTESTINE, PERCUTANEOUS ENDOSCOPIC APPROACH (12/14/16) RESECTION OF GALLBLADDER, PERCUTANEOUS ENDOSCOPIC APPROACH (12/14/16) ROBOTIC ASSISTED PROCEDURE OF TRUNK, PERC ENDO APPROACH (12/14/16) Family History: States: Unknown Family Hx - Social History Hx Alcohol Use: No Hx Substance Use: No - Immunization History Hx Tetanus Toxoid Vaccination: No Hx Influenza Vaccination: No Hx Pneumococcal Vaccination: No Review Of Systems Except As Marked, All Systems Reviewed And Found Negative. Constitutional: Negative for: Fever, Chills Cardiovascular: Positive for: Chest Pain Respiratory: Negative for: Shortness of Breath, SOB with Excertion Gastrointestinal: Negative for: Nausea, Vomiting, Diarrhea Skin: Negative for: Rash Neurological: Negative for: Weakness, Numbness Physical Exam - Physical Exam Appears: Non-toxic, No Acute Distress Skin: Normal Color, Warm, Dry, No Rash Head: Atraumatic, Normacephalic Eye(s): bilateral: Normal Inspection Oral Mucosa: Moist Chest: Symmetrical Cardiovascular: Rhythm Regular Respiratory: Normal Breath Sounds, No Rales, No Rhonchi, No Wheezing Gastrointestinal/Abdominal: Soft, No Tenderness, No Guarding, No Rebound Extremity: Normal ROM, Capillary Refill (<2 seconds) Neurological/Psych: Oriented x3, Normal Speech ED Course And Treatment - Laboratory Results Result Diagrams: 03/24/17 20:03 03/24/17 20:03 Lab Interpretation: No Acute Changes (mild anemia) ECG: Interpreted By Me ECG Rhythm: Sinus Rhythm (with LVH) ECG Interpretation: No Acute Changes O2 Sat by Pulse Oximetry: 100 (RA) Pulse Ox Interpretation: Normal - Radiology CXR: Interpreted by Me CXR Interpretation: Yes: No Acute Disease Progress Note: Patient states that she was treated for hypertension when she was here to have her gallbladder removed. She did not stay on the medication. She denies any headache, visual changes or prior episodes of chest pain or shortness of breath. This pain continues to be constant and is worse with movement of her arm. Reevaluation Time: 20:41 Reassessment Condition: Unchanged Disposition Counseled Patient/Family Regarding: Studies Performed, Diagnosis, Need For Followup, Rx Given - Disposition Disposition: HOME/ ROUTINE Disposition Time: 20:51 Condition: STABLE Prescriptions: Hydrochlorothiazide [Microzide] 12.5 mg PO DAILY #90 cap Instructions: Hypertension (ED), DASH Eating Plan (ED), Noncardiac Chest Pain ( ED) Forms: [employer] (Albanian) - Clinical Impression Clinical Impression: Chest pain, Hypertension - Scribe Statement The provider has reviewed the documentation as recorded by the Baironibnina Trinidad All medical record entries made by the Baironibnina were at my direction and personally dictated by me. I have reviewed the chart and agree that the record accurately reflects my personal performance of the history, physical exam, medical decision making, and the department course for this patient. I have also personally directed, reviewed, and agree with the discharge instructions and disposition.
[2017-03-24 19:59] VITALS: O2SAT 100
[2017-03-24 20:15] LABS: CHLORIDE 104 mmol/L (98-107); POTASSIUM 3.8 mmol/L (3.6-5.2); SODIUM 141 mmol/L (132-148)
[2017-03-24] MEDS ORDERED: Aspirin 325 mg EC Tablets PO ONE (20:15)
[2017-03-24 20:16] LABS: BASO % 0.7 % (0.0-2.0); EOS # 0.1 K/uL (0.0-0.7); HEMATOCRIT 32.7 % (34.0-47.0); LYMPH # 2.5 K/uL (1.0-4.3); LYMPH % 40.9 % (20.0-40.0); MEAN CELL VOLUME 86.1 fL (81.0-99.0); MEAN CORPUSCULAR HEMOGLOBIN 27.5 pg (27.0-31.0); MEAN CORPUSCULAR HGB CONC 31.9 g/dL (33.0-37.0); MEAN PLATELET VOLUME 10.3 fL (7.2-11.7); MONO # 0.5 K/uL (0.0-0.8); MONO % 7.6 % (0.0-10.0); RED CELL DISTRIBUTION WIDTH 14.7 % (11.5-14.5)
[2017-03-24 20:17] LABS: ALB/GLOB RATIO 1.1 (1.0-2.1); ALKALINE PHOSPHATASE 115 U/L (38-126); AST/SGOT 24 U/L (14-36); BILIRUBIN,TOTAL 0.9 mg/dL (0.2-1.3); CARBON DIOXIDE 25 mmol/L (22-30); GFR AFRICAN-AMERICAN > 60; TOTAL PROTEIN 6.7 g/dL (6.3-8.3)
[2017-03-24 20:18] LABS: ALT/SGPT 33 U/L (9-52); BLOOD UREA NITROGEN 16 mg/dL (7-17); CALCIUM 9.4 mg/dl (8.6-10.4); GLUCOSE,RANDOM 80 mg/dL (65-105)
[2017-03-24 20:55] VITALS: BP 166/91; PULSE 61; RESP 18; TEMP 99
--- NOTE | 2017-03-25 08:45 | RAD ---
PROCEDURE: CHEST RADIOGRAPH, 1 VIEW HISTORY: Chest pain COMPARISON: 12/14/2016. FINDINGS: LUNGS: The lungs are well inflated and clear. PLEURA: No pneumothorax or pleural fluid seen. CARDIOVASCULAR: Normal. OSSEOUS STRUCTURES: No significant abnormalities. VISUALIZED UPPER ABDOMEN: Normal. OTHER FINDINGS: None. IMPRESSION: No active pulmonary disease.
--- NOTE | 2017-03-27 18:07 | CARD ---
APPROVED REPORT EKG Measurement Heart [id number] <Conclusion> Normal sinus rhythm Moderate voltage criteria for LVH, may be normal variant Borderline ECG
== END 2017-03-24 21:05 | disposition home or self-care (01) ==
LOC: C.ER 17:44
DX: R07.9 Chest pain, unspecified (principal); I10 Essential (primary) hypertension

== ENCOUNTER 2017-07-16 15:55 | Emergency (ER) | payer MEDICAID, OTHER ==
[2017-07-16 15:55] VITALS: BMI 24.6
[2017-07-16 16:03] VITALS: BP 168/92; PULSE 65; RESP 18; TEMP 98.1; O2SAT 100
--- NOTE | 2017-07-16 16:48 | C.PDOC ---
History Of Present Illness 57 yr old female presents to the ER for evaluation of pain and swelling to the left upper teeth for the past 1 week. Patient reports the pain has been intermittent for the past 1 year. Patient denies fever, throat pain or neck pain. Time Seen by Provider: 07/16/17 16:24 Chief Complaint (Nursing): Dental Pain History Per: Patient History/Exam Limitations: no limitations Onset/Duration Of Symptoms: Days (1 week) Past Medical History Reviewed: Historical Data, Nursing Documentation, Vital Signs Vital Signs: Last Vital Signs Temp 98.1 F 07/16/17 15:58 Pulse 65 07/16/17 15:58 Resp 18 07/16/17 15:58 BP 168/92 H 07/16/17 15:58 Pulse Ox 100 07/16/17 16:53 - Medical History PMH: Anemia, HTN, Hypercholesterolemia Surgical History: Cholecystectomy - [facility] Procedures RADIOGRAPHY OF GALLBLADDER & BILE DUCT USING OTH CONTRAST (12/14/16) RELEASE DUODENUM, PERCUTANEOUS ENDOSCOPIC APPROACH (12/14/16) RELEASE LARGE INTESTINE, PERCUTANEOUS ENDOSCOPIC APPROACH (12/14/16) RESECTION OF GALLBLADDER, PERCUTANEOUS ENDOSCOPIC APPROACH (12/14/16) ROBOTIC ASSISTED PROCEDURE OF TRUNK, PERC ENDO APPROACH (12/14/16) Family History: States: No Known Family Hx - Social History Hx Alcohol Use: No Hx Substance Use: No - Immunization History Hx Tetanus Toxoid Vaccination: No Hx Influenza Vaccination: No Hx Pneumococcal Vaccination: No Review Of Systems Except As Marked, All Systems Reviewed And Found Negative. Constitutional: Negative for: Fever ENT: Positive for: Other ((+) Pain and swelling to the left upper teeth). Negative for: Throat Pain Musculoskeletal: Negative for: Neck Pain Physical Exam - Physical Exam Appears: Non-toxic, No Acute Distress Skin: Warm, Dry, No Rash Head: Atraumatic, Normacephalic Eye(s): bilateral: Normal Inspection, PERRL, EOMI Ear(s): Bilateral: Normal Nose: Normal, No Discharge, No Tenderness Oral Mucosa: Moist, No Trismus Tongue: Normal Appearing, No Swelling Lips: Normal Appearing Gingiva: Swelling (Mild swelling to upper left gum) Throat: Normal, No Erythema, No Exudate Neck: Normal, Normal ROM, Supple Neurological/Psych: Oriented x3, Normal Speech, Normal Motor Gait: Steady ED Course And Treatment O2 Sat by Pulse Oximetry: 100 (RA) Pulse Ox Interpretation: Normal Medical Decision Making Medical Decision Making: PLAN: * Amoxicillin PO * Motrin PO Disposition - Disposition Referrals: Barry Lovett, ADILIA [Staff Provider] - Disposition: HOME/ ROUTINE Disposition Time: 16:30 Condition: GOOD Additional Instructions: Follow up with the Dentist within 1-2 days without fail. Return if worsened Prescriptions: Amoxicillin [Amoxil 500 mg Cap] 500 mg PO TID #29 cap Ibuprofen [Motrin Tab] 800 mg PO TID #20 tab traMADol [Ultram] 50 mg PO Q6 PRN #15 tab PRN Reason: Pain Instructions: Dental Caries (ED) Forms: [employer] (Armenian) - Clinical Impression Clinical Impression: Dental caries - PA / [employer] / Resident Statement MD/DO has reviewed & agrees with the documentation as recorded. - Scribe Statement The provider has reviewed the documentation as recorded by the Scribe Jaycee Parmar All medical record entries made by the Scribe were at my direction and personally dictated by me. I have reviewed the chart and agree that the record accurately reflects my personal performance of the history, physical exam, medical decision making, and the department course for this patient. I have also personally directed, reviewed, and agree with the discharge instructions and disposition.
== END 2017-07-16 17:05 | disposition home or self-care (01) ==
LOC: C.ER 15:55
DX: K02.9 Dental caries, unspecified (principal)

== ENCOUNTER 2018-07-31 01:01 | Emergency (ER) | payer MEDICAID, OTHER ==
[2018-07-31 01:02] VITALS: BMI 24.6
[2018-07-31 01:20] VITALS: O2SAT 99
[2018-07-31] MEDS ORDERED: Lidocaine 1% Inj (20ml) INFIL STA (01:35)
[2018-07-31] MEDS ORDERED: Tetanus/Diphtheria Toxoids 0.5 ml Syringe IM ONE (01:35)
--- NOTE | 2018-07-31 01:38 | C.PDOC ---
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 Patient states she was washing digits and there was a broken glass in the sink that cut her. Denies any sensory changes. Patient is not up to date with tetanus. Time Seen by Provider: 07/31/18 01:29 Chief Complaint (Nursing): Abnormal Skin Integrity History Per: Patient History/Exam Limitations: no limitations Onset/Duration Of Symptoms: Hrs Current Symptoms Are (Timing): Still Present Location Of Injury: Right: Hand Quality Of Symptoms: Other (Laceration) Recent travel outside of the [place]: No Past Medical History Reviewed: Historical Data, Nursing Documentation, Vital Signs Vital Signs: Last Vital Signs Temp 97.3 F L 07/31/18 01:08 Pulse 82 07/31/18 01:08 Resp 16 07/31/18 01:08 BP 164/87 H 07/31/18 01:08 Pulse Ox 99 07/31/18 01:08 - Medical History PMH: Anemia, HTN, Hypercholesterolemia Denies: Chronic Kidney Disease Surgical History: Cholecystectomy - [facility] Procedures RADIOGRAPHY OF GALLBLADDER & BILE DUCT USING OTH CONTRAST (12/14/16) RELEASE DUODENUM, PERCUTANEOUS ENDOSCOPIC APPROACH (12/14/16) RELEASE LARGE INTESTINE, PERCUTANEOUS ENDOSCOPIC APPROACH (12/14/16) RESECTION OF GALLBLADDER, PERCUTANEOUS ENDOSCOPIC APPROACH (12/14/16) ROBOTIC ASSISTED PROCEDURE OF TRUNK, PERC ENDO APPROACH (12/14/16) Family History: States: Unknown Family Hx - Social History Hx Alcohol Use: No Hx Substance Use: No - Immunization History Hx Tetanus Toxoid Vaccination: No Hx Influenza Vaccination: No Hx Pneumococcal Vaccination: No Review Of Systems Skin: Positive for: Other (Laceration) Physical Exam - Physical Exam Appears: Non-toxic Skin: Warm, Dry Head: Atraumatic, Normacephalic Eye(s): bilateral: Normal Inspection Extremity: Other (3cm laceration of right hand at the webbing between 1st and 2nd digit, sensation and cap refill of digits intact, normal ROM of digits) Pulses: Left Radial: Normal, Right Radial: Normal Neurological/Psych: Oriented x3, Normal Speech, Normal Motor, Normal Sensation Gait: Steady ED Course And Treatment O2 Sat by Pulse Oximetry: 99 (Room air) Pulse Ox Interpretation: Normal Progress Note: Tetanus vaccine administered. Patient tolerated laceration repair without any difficulty. Laceration - Laceration Repair Right hand Wound Length (In cm): 3.0 Description Of Wound: Linear Wound Cleansed With: Sterile Saline Anesthesia: Lidocaine 1% (3-4ml local infiltration) Wound Examination: Irrigated With Saline, No FB With Wound Exploration, No Tendon Injury With Wound Exploration Wound Closure: Suture (4 simple uninterrupted) Suture Technique And Material Used: Nylon (3-0) Disposition Counseled Patient/Family Regarding: Diagnosis, Need For Followup - Disposition Referrals: at [facility] [Outside] Disposition: HOME/ ROUTINE Disposition Time: 02:15 Condition: STABLE Additional Instructions: SUTURE REMOVAL IN 7 DAYS RETURN TO ER IF YOU HAVE ANY CONCERNING SYMPTOMS, SUCH REDNESS, FEVER, DISCHARGE, ETC Instructions: Laceration Repair With Stitches (DC) Forms: [facility] ([place]awk), General Discharge Instructions Print Language: KINYARWANDA - Clinical Impression Clinical Impression: Laceration of hand - Scribe Statement The provider has reviewed the documentation as recorded by the Scribe Kong Dill All medical record entries made by the Scribe were at my direction and personally dictated by me. I have reviewed the chart and agree that the record accurately reflects my personal performance of the history, physical exam, medical decision making, and the department course for this patient. I have also personally directed, reviewed, and agree with the discharge instructions and disposition.
[2018-07-31] MEDS ORDERED: Lidocaine Hydrochloride 5 ML INJ ONE (01:49)
[2018-07-31] MEDS ORDERED: Bacitracin 500 Units/gm Oint Foilpak UD TOP ONE (02:02)
[2018-07-31] MEDS ORDERED: Tdap Vaccine 0.5 ml Vial (10-64 yrs) IM ONE (02:15)
[2018-07-31] MEDS ORDERED: Bacitracin 500 Units/gm Oint Foilpak UD ONE (02:16)
[2018-07-31 02:45] VITALS: BP 128/71; PULSE 72; RESP 18; TEMP 98.8
== END 2018-07-31 02:45 | disposition home or self-care (01) ==
LOC: C.ER 01:01
DX: S61.411A Laceration without foreign body of right hand, initial encounter (principal); W25.XXXA Contact with sharp glass, initial encounter; Y93.G1 Activity, food preparation and clean up; E78.00 Pure hypercholesterolemia, unspecified; I10 Essential (primary) hypertension; Z23 Encounter for immunization